=== PATIENT | male | born 1950 | race Two or more races ===

== ENCOUNTER 2016-12-20 23:07 | Inpatient (IN) | payer MEDICARE, OTHER ==
[~2016-12-20] VITALS: Ht 167.6 cm; Wt 54.4 kg
[~2016-12-20 23:07] MED LIST: LORazepam Inj 2mg/ml 1ml IV ONE
[2016-12-20 23:10] VITALS: BP 199/99
--- NOTE | 2016-12-20 23:36 | Emergency Room Report ---
History of Present Illness General Chief Complaint: Altered Level of Consciousness Source: Medical Record Present Illness HPI 66YOM BIBEMS from SNF for "more tremors than usual" and 'looking to the left" and not talking as much No other info from EMS, SNF Daughter called, patient is FULL CODE Allergies: Coded Allergies: ATORVASTATIN (Verified Allergy, Unknown, 12/20/16) Patient History Past Medical History: HTN, CVA/TIA, other - Tremors, anemia, dementia Past Surgical History: unable to obtain Pertinent Family History: unable to obtain Social History: Denies: smoking, alcohol use, drug use Immunizations: UTD Reviewed Nursing Documentation: PMH: Agreed, PSxH: Agreed Nursing Documentation-PMH Hx Hypertension: Yes Review of Systems All Other Systems: limited - AMS Physical Exam Vital Signs Date Time Temp Pulse Resp B/P (MAP) Pulse Ox O2 Delivery O2 Flow Rate FiO2 12/20/16 22:43 100.4 120 24 158/92 96 Non-Rebreather 15.0 Sp02 EP Interpretation: reviewed, normal General Appearance: normal inspection, other - Staring to left, severely tremulous Head: normocephalic, atraumatic Eyes: bilateral eye PERRL, bilateral eye EOMI ENT: normal ENT inspection, hearing grossly normal, normal pharynx, no angioedema Neck: normal inspection, full range of motion, supple, no bony tend Respiratory: normal inspection, lungs clear, normal breath sounds, no respiratory distress, no retraction, no accessory muscle use, no wheezing, speaking full sentences Cardiovascular #1: regular rate, rhythm, no edema, tachycardia Gastrointestinal: normal inspection, normal bowel sounds, non tender, soft, no guarding, no hernia Genitourinary: no CVA tenderness Musculoskeletal: normal inspection, back normal, normal range of motion, Lina' s Sign negative Neurologic: normal inspection, alert, other - Squeezes with right hand on command. Left hand contracted. Psychiatric: normal inspection, judgement/insight normal, mood/affect normal Skin: normal inspection, normal color, no rash Medical Decision Making Medicare Attestation I Lucero Rae MD hereby attest that the medical record entry for date of service, 12/21/16 accurately reflects signatures/notations that I made in my capacity as MD when I treated/diagnosed the above listed Medicare beneficiary. I attest that this information is true, accurate and complete to the best of my knowledge. I understand that any falsification, omission, or concealment of material fact may subject me to administrative, civil, or criminal liability. This patient warrants hospital admission for extreme of age and has a condition that cannot be treated as outpatient. Diagnostic Impression: Primary Impression: Altered level of consciousness Additional Impressions: Coarse tremors Sepsis Qualified Codes: A41.9 - Sepsis, unspecified organism ER Course Tremors resolved with IVF, ABx, Tylenol and IV ativan Hemodyanmics also improved. Tachycardia and HTN improved Labs: Leuks 18K. Lactate downtrended. CXR/UA negative for obvious source of infection Attempted LP 4x without CSF obtained Empirically tx for meningitis with Vanc/Amp/Ceftriaxone CT head no acute process Airway patent Patient able to follow commands - squeezes with right hand. Blinks twice for understanding commands. Endorsed to Dr Kelley for panel admission after [facility] approved admission here at 308am EKG Diagnostic Results Rate: tachycardiac Rhythm: NSR ST Segments: no acute changes ASA given to the pt in ED: No Rhythm Strip Diag. Results EP Interpretation: yes Rate: 105 Rhythm: NSR, no PVC's, no ectopy Chest X-Ray Diagnostic Results Chest X-Ray Diagnostic Results : Chest X-Ray Ordered: Yes # of Views/Limited/Complete: 1 View Indication: Other - AMS EP Interpretation: Yes Interpretation: no consolidation, no effusion, no pneumothorax, no acute cardiopulmonary disease Impression: No acute disease Interpreting ER Provider: Dr Lucero Rae MD Last Vital Signs Date Time Temp Pulse Resp B/P (MAP) Pulse Ox O2 Delivery O2 Flow Rate FiO2 12/20/16 22:43 100.4 120 24 158/92 96 Non-Rebreather 15.0 Status: improved Disposition: ADMITTED INPATIENT Condition: Critical LUCERO RAE M.D. Dec 20, 2016 23:36
[2016-12-20] MEDS ORDERED: Cefepime HCl 2 GM in D5W 110 ML IVPB ONE (23:45)
[2016-12-20] MEDS ORDERED: Acetaminophen 650 MG SUPP RECTAL ONE (23:45)
[2016-12-20 23:47] LABS: MEAN CORPUSCULAR HEMOGLOBIN 28.8 PG (27.0-31.0); MEAN CORPUSCULAR HGB CONC 32.9 G/DL (32.0-36.0); MEAN CORPUSCULAR VOLUME 87 FL (80-99); MEAN PLATELET VOLUME 5.4 FL (6.5-10.1); PLATELET COUNT 543 K/UL (150-450); RED BLOOD COUNT 3.81 M/UL (4.70-6.10); RED CELL DISTRIBUTION WIDTH 15.7 % (11.6-14.8); WHITE BLOOD COUNT 18.5 K/UL (4.8-10.8)
[2016-12-21] VITALS (9 sets, daily range): BP systolic 134–171; BP diastolic 80–118
[2016-12-21 00:09] LABS: TROPONIN I < 0.30 ng/mL (<=0.30)
[2016-12-21 00:13] LABS: ALANINE AMINOTRANSFERASE 19 U/L (3-41); ALBUMIN/GLOBULIN RATIO 1.2 (1.0-2.7); ANION GAP 13 (5-15); ASPARTATE AMINO TRANSFERASE 22 U/L (5-40); CALCIUM 9.5 mg/dL (8.6-10.2); CARBON DIOXIDE 26 mEQ/L (20-30); CHLORIDE 103 mEQ/L (98-107); GLOMERULAR FILTRATION RATE > 60 mL/min (>60); HEMOLYSIS 3; POTASSIUM 4.6 mEQ/L (3.4-4.9); SODIUM 142 mEQ/L (135-145)
[2016-12-21 00:16] LABS: REFLEX LACTIC ACID YES OR NO YES
[2016-12-21 00:23] LABS: CKMB 2.7 ng/mL (< 6.7)
[2016-12-21] MEDS ORDERED: Cefepime 2gm ONE (00:30)
[2016-12-21] MEDS ORDERED: levETIRAcetam 1,000mg/NS100ml 100 ML IVPB ONE (01:15)
[2016-12-21] MEDS ORDERED: Unasyn 3gm Inj IV ONE (01:30)
[2016-12-21] MEDS ORDERED: Vancomycin 1 GM in D5W 275 ML IVPB ONE (01:30)
[2016-12-21 01:51] LABS: APPEARANCE,URINE CLEAR; KETONES,URINE NEGATIVE (NEGATIVE); LEUKOCYTE ESTERASE ,URINE 2+ (NEGATIVE); NITRITE,URINE NEGATIVE (NEGATIVE); PH,URINE 6 (4.5-8.0); PROTEIN,URINE NEGATIVE (NEGATIVE); UROBILINOGEN,URINE NORMAL MG/DL (0.0-1.0)
[2016-12-21 02:00] LABS: RBC,URINE 0-2 /HPF (0 - 0)
[2016-12-21] MEDS ORDERED: fentaNYL 100 mcg/2 mL IV ONE (02:30)
[2016-12-21] MEDS ORDERED: Midazolam 2mg/2ml Inj IVP ONE (02:30)
[2016-12-21] MEDS ORDERED: Vancomycin 1gm inj IVPB ONE (03:22)
[2016-12-21] MEDS ORDERED: ACETAMINOPHEN325 M1 ORAL (03:52)
[2016-12-21] MEDS ORDERED: QUETIAPINE FUM100 MG ORAL (03:52)
[2016-12-21] MEDS ORDERED: FERROUS SULFAT325 MG ORAL (03:52)
[2016-12-21] MEDS ORDERED: NORVASC5 MG ORAL (03:52)
[2016-12-21] MEDS ORDERED: ATIVAN0.5 MG ORAL (03:52)
[2016-12-21] MEDS ORDERED: OMEPRAZOLE20 M3 ORAL (03:52)
[2016-12-21] MEDS ORDERED: D5 1/2NS 1,000 ML IV SCH (07:00)
--- NOTE | 2016-12-21 08:40 | History & Physical ---
History and Physical History & Physicial seen and examined. Dictation completed Gerard Kelley MD Dec 21, 2016 08:40
--- NOTE | 2016-12-21 08:43 | General Progress Note ---
Assessment/Plan Status: stable Assessment/Plan 1- Sepsis 2- Meningo-encephalitis: Presumable diagnosis 3- CVA- history of Plan: neuro ID Psych consulted. Start isolation, secondary to possibility of item#2 Subjective ROS Limited/Unobtainable: Yes Allergies: Coded Allergies: ATORVASTATIN (Verified Allergy, Unknown, 12/20/16) Objective Last 24 Hour Vital Signs Date Time Temp Pulse Resp B/P (MAP) Pulse Ox O2 Delivery O2 Flow Rate FiO2 12/21/16 05:15 98.6 120 21 140/86 98 Nasal Cannula 2.0 12/21/16 04:30 120 12/21/16 04:15 100.7 110 21 168/99 100 Nasal Cannula 2.0 12/21/16 04:00 110 21 168/99 100 Nasal Cannula 2.0 12/21/16 03:40 100.7 112 25 165/98 100 Nasal Cannula 2.0 12/21/16 02:57 100.7 12/21/16 02:12 131 28 169/118 93 Nasal Cannula 2.0 12/21/16 01:00 120 23 154/80 100 Nasal Cannula 2.0 12/21/16 00:21 99.9 12/20/16 23:51 199/99 12/20/16 23:10 100.4 124 23 199/99 97 Room Air 12/20/16 22:43 100.4 120 24 158/92 96 Non-Rebreather 15.0 Laboratory Tests 12/20/16 23:15: White Blood Count 18.5H, Red Blood Count 3.81L, Hemoglobin 11.0L, Hematocrit 33.3L, Mean Corpuscular Volume 87, Mean Corpuscular Hemoglobin 28.8, Mean Corpuscular Hemoglobin Concent 32.9, Red Cell Distribution Width 15.7H, Platelet Count 543H, Mean Platelet Volume 5.4L, Neutrophils (%) (Auto) , Lymphocytes (%) (Auto) , Monocytes (%) (Auto) , Eosinophils (%) (Auto) , Basophils (%) (Auto) , Sodium Level 142, Potassium Level 4.6, Chloride Level 103 , Carbon Dioxide Level 26, Anion Gap 13, Blood Urea Nitrogen 13, Creatinine 1.0 , Estimat Glomerular Filtration Rate > 60, Glucose Level 142H, Lactic Acid Level 3.20H, Calcium Level 9.5, Total Bilirubin 0.2, Aspartate Amino Transf (AST /SGOT) 22, Alanine Aminotransferase (ALT/SGPT) 19, Alkaline Phosphatase 109, Total Creatine Kinase 109, Creatine Kinase MB 2.7, Creatine Kinase MB Relative Index 2.4, Troponin I < 0.30, Total Protein 8.0, Albumin 4.5, Globulin 3.5, Albumin/Globulin Ratio 1.2 12/21/16 01:40: Lactic Acid Level 2.10, Urine Color Pale yellow, Urine Appearance Clear, Urine pH 6, Urine Specific [place] 1.010, Urine Protein Negative, Urine Glucose (UA) Negative, Urine Ketones Negative, Urine Occult Blood Negative, Urine Nitrite Negative, Urine Bilirubin Negative, Urine Urobilinogen Normal, Urine Leukocyte Esterase 2+H, Urine RBC 0-2H, Urine WBC 10-15H, Urine Squamous Epithelial Cells None, Urine Bacteria None Height (Feet): 5 Height (Inches): 6.00 Weight (Pounds): 120 General Appearance: lethargic, confused EENT: other - Nucheal rigidity Neck: muscle spasm Cardiovascular: normal rate Respiratory/Chest: lungs clear Abdomen: soft Extremities: other - [place] positive Neurologic: disoriented Gerard Kelley MD Dec 21, 2016 08:43
[2016-12-21] MEDS: Heparin 5000 units/ml inj SUBQ SCH ×2 (09:58→21:46)
[2016-12-21] MEDS ORDERED: Cefepime HCl 1 GM in D5W 55 ML IVPB SCH (11:00)
--- NOTE | 2016-12-21 12:42 | Consultation ---
History of Present Illness General Date patient seen: Dec 21, 2016 Chief Complaint: Altered Level of Consciousness Referring physician: Dr kowalski Reason for Consultation: dyspnea, sepsis Present Illness HPI 66 year old male with hx of HTN, COPD, CVA, from SNF brought in by paramedics with CC of for "more tremors than usual" and 'looking to the left" and not talking as much. Pt was febrile and poorly responsive and admitted to [facility] for further evaluation. Allergies: Coded Allergies: ATORVASTATIN (Verified Allergy, Unknown, 12/20/16) Medication History Scheduled Amlodipine Besylate (Norvasc), 5 MG ORAL DAILY, (Reported) Ferrous Sulfate* (Ferrous Sulfate*), 325 MG ORAL DAILY, (Reported) Omeprazole (Omeprazole), 20 MG ORAL BID, (Reported) Quetiapine Fumarate* (Seroquel*), 50 MG ORAL DAILY, (Reported) Scheduled PRN Acetaminophen* (Acetaminophen 325MG Tablet*), 325 MG ORAL Q6H PRN for Mild Pain (Pain Scale 1-3), (Reported) Lorazepam* (Ativan*), 0.5 MG ORAL BID PRN for For Anxiety, (Reported) Patient History Healthcare decision maker Resuscitation status Full Code Advanced Directive on File No Past Medical/Surgical History Past Medical/Surgical History: (1) History of CVA (cerebrovascular accident) (2) COPD (chronic obstructive pulmonary disease) Review of Systems Eye: Reports: no symptoms ENT: Reports: no symptoms Respiratory: Reports: no symptoms Physical Exam General Appearance: WD/WN Lines, tubes and drains: peripheral HEENT: normocephalic, atraumatic Neck: non-tender, normal alignment Respiratory/Chest: chest wall non-tender, lungs clear Breasts: no masses Cardiovascular/Chest: normal peripheral pulses Abdomen: normal bowel sounds, non tender Genitourinary/Rectal: normal genital exam Extremities: normal range of motion Skin Exam: normal pigmentation Neurologic: retail marketing manager II-XII grossly normal, no motor/sensory deficits Last 24 Hour Vital Signs Date Time Temp Pulse Resp B/P (MAP) Pulse Ox O2 Delivery O2 Flow Rate FiO2 12/21/16 12:00 97.2 96 20 161/90 98 Nasal Cannula 2.0 12/21/16 09:52 105 134/93 12/21/16 08:00 98.2 105 16 134/93 96 Nasal Cannula 2.0 12/21/16 08:00 2.0 12/21/16 05:15 98.6 120 21 140/86 98 Nasal Cannula 2.0 12/21/16 04:30 120 12/21/16 04:15 100.7 110 21 168/99 100 Nasal Cannula 2.0 12/21/16 04:00 110 21 168/99 100 Nasal Cannula 2.0 12/21/16 03:40 100.7 112 25 165/98 100 Nasal Cannula 2.0 12/21/16 02:57 100.7 12/21/16 02:12 131 28 169/118 93 Nasal Cannula 2.0 12/21/16 01:00 120 23 154/80 100 Nasal Cannula 2.0 12/21/16 00:21 99.9 12/20/16 23:51 199/99 12/20/16 23:10 100.4 124 23 199/99 97 Room Air 12/20/16 22:43 100.4 120 24 158/92 96 Non-Rebreather 15.0 Intake and Output 12/21/16 12/22/16 19:00 07:00 Output Total 550 ml Balance -550 ml Output Urine Total 550 ml Laboratory Tests Test 12/20/16 23:15 12/21/16 01:40 White Blood Count 18.5 K/UL (4.8-10.8) H Red Blood Count 3.81 M/UL (4.70-6.10) L Hemoglobin 11.0 G/DL (14.2-18.0) L Hematocrit 33.3 % (42.0-52.0) L Mean Corpuscular Volume 87 FL (80-99) Mean Corpuscular Hemoglobin 28.8 PG (27.0-31.0) Mean Corpuscular Hemoglobin Concent 32.9 G/DL (32.0-36.0) Red Cell Distribution Width 15.7 % (11.6-14.8) H Platelet Count 543 K/UL (150-450) H Mean Platelet Volume 5.4 FL (6.5-10.1) L Neutrophils (%) (Auto) % (45.0-75.0) Lymphocytes (%) (Auto) % (20.0-45.0) Monocytes (%) (Auto) % (1.0-10.0) Eosinophils (%) (Auto) % (0.0-3.0) Basophils (%) (Auto) % (0.0-2.0) Sodium Level 142 mEQ/L (135-145) Potassium Level 4.6 mEQ/L (3.4-4.9) Chloride Level 103 mEQ/L (98-107) Carbon Dioxide Level 26 mEQ/L (20-30) Anion Gap 13 (5-15) Blood Urea Nitrogen 13 mg/dL (7-23) Creatinine 1.0 mg/dL (0.7-1.2) Estimat Glomerular Filtration Rate > 60 mL/min (>60) Glucose Level 142 mg/dL (74-106) H Lactic Acid Level 3.20 mmol/L (0.66-2.22) H 2.10 mmol/L (0.66-2.22) Calcium Level 9.5 mg/dL (8.6-10.2) Total Bilirubin 0.2 mg/dL (0.0-1.2) Aspartate Amino Transf (AST/SGOT) 22 U/L (5-40) Alanine Aminotransferase (ALT/SGPT) 19 U/L (3-41) Alkaline Phosphatase 109 U/L (40-129) Total Creatine Kinase 109 U/L (38-174) Creatine Kinase MB 2.7 ng/mL (< 6.7) Creatine Kinase MB Relative Index 2.4 Troponin I < 0.30 ng/mL (<=0.30) Total Protein 8.0 g/dL (6.6-8.7) Albumin 4.5 g/dL (3.5-5.2) Globulin 3.5 g/dL Albumin/Globulin Ratio 1.2 (1.0-2.7) Urine Color Pale yellow Urine Appearance Clear Urine pH 6 (4.5-8.0) Urine Specific [place] 1.010 (1.005-1.035) Urine Protein Negative (NEGATIVE) Urine Glucose (UA) Negative (NEGATIVE) Urine Ketones Negative (NEGATIVE) Urine Occult Blood Negative (NEGATIVE) Urine Nitrite Negative (NEGATIVE) Urine Bilirubin Negative (NEGATIVE) Urine Urobilinogen Normal MG/DL (0.0-1.0) Urine Leukocyte Esterase 2+ (NEGATIVE) H Urine RBC 0-2 /HPF (0 - 0) H Urine WBC 10-15 /HPF (0 - 0) H Urine Squamous Epithelial Cells None /LPF (NONE/OCC) Urine Bacteria None /HPF (NONE) Height (Feet): 5 Height (Inches): 6.00 Weight (Pounds): 120 Medications Current Medications Medications (Trade) Dose Ordered Sig/Treasure Route PRN Reason Start Time Stop Time Status Last Admin Dose Admin Acetaminophen (Tylenol) 650 mg Q6H PRN ORAL Mild Pain/Temp > 100.5 12/21/16 06:45 01/20/17 06:44 Amlodipine Besylate (Norvasc) 5 mg DAILY ORAL 12/21/16 09:00 01/20/17 08:59 12/21/16 09:52 Cefepime HCl 1 gm/ Dextrose 55 ml @ 110 mls/hr Q12HR@1100,2300 IVPB 12/21/16 11:00 12/28/16 10:59 12/21/16 10:29 Dextrose/Sodium Chloride 1,000 ml @ 150 mls/hr Q6H40M IV 12/21/16 07:00 01/20/17 06:59 12/21/16 07:00 Ferrous Sulfate (Feosol) 325 mg DAILY ORAL 12/21/16 09:00 01/20/17 08:59 12/21/16 09:52 Heparin Sodium (Porcine) (Heparin 5000 units/ml) 5,000 units EVERY 12 HOURS SUBQ 12/21/16 09:00 01/20/17 08:59 12/21/16 09:58 Ranitidine HCl (Zantac) 150 mg TWICE A DAY ORAL 12/21/16 09:00 01/20/17 08:59 12/21/16 09:52 Vancomycin HCl (Vanco rx to dose) 1 ea DAILY PRN MISC Per rx protocol 12/21/16 06:45 01/20/17 06:44 Vancomycin HCl 1 gm/Dextrose 275 ml @ 183.708 mls/hr Q24H IVPB 12/22/16 03:00 12/27/16 02:59 Assessment/Plan Problem List: (1) Sepsis ICD Codes: A41.9 - Sepsis, unspecified organism SNOMED: 92623299 Qualifiers: Qualified Codes: A41.9 - Sepsis, unspecified organism (2) Altered level of consciousness ICD Codes: R40.4 - Transient alteration of awareness SNOMED: 0248019 (3) COPD (chronic obstructive pulmonary disease) ICD Codes: J44.9 - Chronic obstructive pulmonary disease, unspecified SNOMED: 88265888 (4) History of CVA (cerebrovascular accident) ICD Codes: Z86.73 - Personal history of transient ischemic attack (TIA), and cerebral infarction without residual deficits SNOMED: 449028727 Assessment/Plan kimbrough cultures iv abx check wbc swallow studies dvt prophylaxis NG tube feeding ID evaluation Neuro to see. GUS CUMMINGS Dec 21, 2016 12:42
[2016-12-21] MEDS: D5 1/2NS 1,000 ML IV SCH (15:02)
[2016-12-21] MEDS ORDERED: Tubing IV Secondary IV ONE (15:46)
[2016-12-21] MEDS ORDERED: D5 1/2NS 1000ml IV ONE (15:46)
[2016-12-21] MEDS: Vancomycin 1gm/D5W 275ml IVPB SCH ×2 (18:54)
[2016-12-21] MEDS ORDERED: Acetaminophen 650mg/20.3ml GT PRN (20:00)
--- NOTE | 2016-12-21 20:49 | Consultation ---
Consult Note Consult Note NEUROLOGY CONSULTATION: Full note dictated #[id number] 66 y/o, RH, BM with PH of HTN, multiple strokes involving the left body > right, a significant aphasia, and dementia. He was recently moved to a SNF where he was noted to have an "alteration in mental state and tremors." ON EXAMINATION: Oriented to self only. Aphasic Dysarthric Depressed left corneal Left > right VII central Left upper extremity plegia Right UE paresis L>R LE paresis Absent DTRs Extensor plantars. CT of brain with multi-infarct brain disease involving both hemispheres. IMPRESSION: MIBD Superadded infectious process. REC: Agree with brain MRI EEG Rx of infection Observe. Becca Mckeon M.D., M.S.P.Prema. BECCA MCKEON Dec 21, 2016 20:49
--- NOTE | 2016-12-21 21:30 | History and Physical Report ---
DATE OF ADMISSION: 12/21/2016 SOURCE OF INFORMATION: EMR. HISTORY OF PRESENT ILLNESS: The patient is a resident of a fdc facility. The patient has been brought up regarding the tremors and some seizure-like activities. Per conversation with the patient's daughter, the patient is Full Code. PAST MEDICAL HISTORY: Hypertension, CVA, tremors, anemia, and dementia. PAST SURGICAL HISTORY: Unable to obtain. ALLERGIES: Atorvastatin. HOSPITAL MEDICATIONS: Including but not limited to vancomycin, heparin subcutaneous 5000 twice a day, cefepime 1 g q.12 hours, amlodipine 5 mg daily, and GI and DVT prophylaxes medications in place. SOCIAL HISTORY: No documented history of illicit drug abuse, smoking, or alcohol abuse exists. The patient is a resident of a fdc facility. REVIEW OF SYSTEMS: As above. PHYSICAL EXAMINATION: VITAL SIGNS: Blood pressure 170/80, temperature 100.7, pulse rate 100-120, and respiratory rate 20-25. HEENT AND NECK: Head and neck is very rigid. CHEST: Clear to auscultation. No wheezing. HEART: S1 and S2. Regular rate and rhythm. Tachycardic. NEUROLOGIC: The patient is obtunded, not verbally communicative. Hyperreflexia, possibility of Kernig's and Brudzinski's. Reflexes cannot be excluded. There is a nuchal rigidity. LABORATORY AND DIAGNOSTIC DATA: Labs dated 12/20/2016 showed WBC 18.5, hemoglobin 11, and platelets 543,000. Sodium 142, potassium 4.6, BUN 13, and creatinine 1. Lactic acid 3.2. Urinalysis is unremarkable. Imaging reports are pending. ASSESSMENT: 1. Sepsis, sources including, but not limited to meningitis. 2. Meningoencephalitis-the presumable diagnosis-lumbar puncture cannot be obtained secondary to patient's posture. 3. Cerebrovascular accident-history of 4. Anemia. 5. Anxiety/depression. 6. Gastrointestinal and deep vein thrombosis prophylaxis. PLAN OF CARE: This is a significantly limited medical evaluation. Given the technical problems for obtaining the LP towards the clinical suspicions of meningoencephalitis. I will start the patient on the isolation. Neurology, Infectious Diseases are already been consulted and notified. Empiric antibiotics cefepime and vancomycin have been already started. Gerard Kelley M.D. DR: RADHA JOB#: [id number] CC:
[2016-12-21] MEDS: Metoprolol 25mg tab NG SCH (21:32)
[2016-12-21] MEDS: Acyclovir 750 MG in NS 110 ML IV SCH (21:32)
[2016-12-21] MEDS: cefTRIAXone 2 GM in D5W 110 ML IVPB SCH (21:32)
[2016-12-21 22:10] LABS: HEMOGLOBIN A1C 5.1 % (< 6.0)
--- NOTE | 2016-12-21 23:34 | Consultation ---
History of Present Illness General Chief Complaint: Altered Level of Consciousness Present Illness HPI the pt with multiple strokes mmp admitted for ams. mom bedside her and the pt was alert however not responding to questions. the pt pw episodes of agitation. the pt sxs manageable the pt is in one point restraint. the pt has cognitive impairment. Allergies: Coded Allergies: ATORVASTATIN (Verified Allergy, Unknown, 12/20/16) Medication History Scheduled Amlodipine Besylate (Norvasc), 5 MG ORAL DAILY, (Reported) Ferrous Sulfate* (Ferrous Sulfate*), 325 MG ORAL DAILY, (Reported) Omeprazole (Omeprazole), 20 MG ORAL BID, (Reported) Quetiapine Fumarate* (Seroquel*), 50 MG ORAL DAILY, (Reported) Scheduled PRN Acetaminophen* (Acetaminophen 325MG Tablet*), 325 MG ORAL Q6H PRN for Mild Pain (Pain Scale 1-3), (Reported) Lorazepam* (Ativan*), 0.5 MG ORAL BID PRN for For Anxiety, (Reported) Patient History History Provided By: Patient, Medical Record, PMD Healthcare decision maker Resuscitation status Full Code Advanced Directive on File No Past Medical/Surgical History Past Medical/Surgical History: (1) Sepsis (2) Altered level of consciousness (3) Coarse tremors Review of Systems All Other Systems: negative except mentioned in HPI Physical Exam General Appearance: no apparent distress, alert, confused, cachetic Neurologic: alert, disoriented, unresponsiveness, depressed affect Last 24 Hour Vital Signs Date Time Temp Pulse Resp B/P (MAP) Pulse Ox O2 Delivery O2 Flow Rate FiO2 12/21/16 21:32 93 163/100 12/21/16 20:00 93 12/21/16 20:00 2.0 12/21/16 20:00 97.7 93 18 163/100 95 Nasal Cannula 2.0 12/21/16 16:10 2.0 12/21/16 16:00 96 12/21/16 16:00 97.0 100 21 171/90 93 Nasal Cannula 2.0 12/21/16 12:00 2.0 12/21/16 12:00 97.2 96 20 161/90 98 Nasal Cannula 2.0 12/21/16 09:52 105 134/93 12/21/16 09:02 110 12/21/16 08:00 98.2 105 16 134/93 96 Nasal Cannula 2.0 12/21/16 08:00 2.0 12/21/16 05:15 98.6 120 21 140/86 98 Nasal Cannula 2.0 12/21/16 04:30 120 12/21/16 04:15 100.7 110 21 168/99 100 Nasal Cannula 2.0 12/21/16 04:00 110 21 168/99 100 Nasal Cannula 2.0 12/21/16 03:40 100.7 112 25 165/98 100 Nasal Cannula 2.0 12/21/16 02:57 100.7 12/21/16 02:12 131 28 169/118 93 Nasal Cannula 2.0 12/21/16 01:00 120 23 154/80 100 Nasal Cannula 2.0 12/21/16 00:21 99.9 12/20/16 23:51 199/99 Intake and Output 12/21/16 12/22/16 19:00 07:00 Output Total 1600 ml 400 ml Balance -1600 ml -400 ml Output Urine Total 1600 ml 400 ml Laboratory Tests Test 12/21/16 01:40 12/21/16 02:50 12/21/16 21:10 Urine Color Pale yellow Urine Appearance Clear Urine pH 6 (4.5-8.0) Urine Specific [place] 1.010 (1.005-1.035) Urine Protein Negative (NEGATIVE) Urine Glucose (UA) Negative (NEGATIVE) Urine Ketones Negative (NEGATIVE) Urine Occult Blood Negative (NEGATIVE) Urine Nitrite Negative (NEGATIVE) Urine Bilirubin Negative (NEGATIVE) Urine Urobilinogen Normal MG/DL (0.0-1.0) Urine Leukocyte Esterase 2+ (NEGATIVE) H Urine RBC 0-2 /HPF (0 - 0) H Urine WBC 10-15 /HPF (0 - 0) H Urine Squamous Epithelial Cells None /LPF (NONE/OCC) Urine Bacteria None /HPF (NONE) Lactic Acid Level 2.10 mmol/L (0.66-2.22) Thyroid Stimulating Hormone (TSH) 1.940 uIU/mL (0.300-4.500) Rapid Plasma Reagin Pending HIV (1&2) Antibody Rapid Negative (NEGATIVE) Hemoglobin A1c 5.1 % (< 6.0) Vitamin B12 Level 255 pg/mL (211-946) Vitamin D 25-Hydroxy Pending 25-Hydroxy Vitamin D2 Pending 25-Hydroxy Vitamin D3 Pending Folate Pending Height (Feet): 5 Height (Inches): 6.00 Weight (Pounds): 120 Medications Current Medications Medications (Trade) Dose Ordered Sig/Treasure Route PRN Reason Start Time Stop Time Status Last Admin Dose Admin Acetaminophen (Tylenol) 650 mg Q6H PRN GT Mild Pain/Temp > 100.5 12/21/16 20:00 01/20/17 06:44 Acyclovir 750 mg/ Sodium Chloride 110 ml @ 110 mls/hr Q8HR IV 12/21/16 19:30 12/28/16 19:29 12/21/16 21:32 Amlodipine Besylate (Norvasc) 5 mg DAILY GT 12/22/16 09:00 01/20/17 08:59 Ceftriaxone Sodium 2 gm/ Dextrose 110 ml @ 220 mls/hr Q12HR@0800,2000 IVPB 12/21/16 20:00 12/28/16 19:59 12/21/16 21:32 Dextrose/Sodium Chloride 1,000 ml @ 75 mls/hr [id number] IV 12/21/16 13:00 01/20/17 12:59 12/21/16 15:02 Heparin Sodium (Porcine) (Heparin 5000 units/ml) 5,000 units EVERY 12 HOURS SUBQ 12/21/16 09:00 01/20/17 08:59 12/21/16 21:46 Metoprolol Tartrate (Lopressor) 25 mg Q12HR NG 12/21/16 18:00 01/20/17 17:59 12/21/16 21:32 Ranitidine HCl (Zantac) 150 mg TWICE A DAY GT 12/22/16 09:00 01/20/17 08:59 Vancomycin HCl (Vanco rx to dose) 1 ea DAILY PRN MISC Per rx protocol 12/21/16 06:45 01/20/17 06:44 Vancomycin HCl 1 gm/Dextrose 275 ml @ 183.708 mls/hr Q12HR@0600,1800 IVPB 12/21/16 18:30 12/26/16 18:29 12/21/16 18:54 Assessment/Plan Status: unchanged Assessment/Plan encephalopathy due [facility] agitation stroke -will not add any antipsychotics -will treat agitation with Cinthia Donis M.D. Dec 21, 2016 23:34
[2016-12-22] VITALS: BP 155/86
[2016-12-22] MEDS: D5 1/2NS 1,000 ML IV SCH ×2 (02:14→20:01)
[2016-12-22] MEDS ORDERED: Vancomycin 1gm/D5W 275ml IVPB SCH ×2 (03:00)
--- NOTE | 2016-12-22 03:46 | Consultation ---
DATE OF CONSULTATION: 12/21/2016 NEUROLOGY CONSULTATION CONSULTING PHYSICIAN: Frantz Mckeon M.D. REQUESTING PHYSICIAN: Gerard Kelley M.D. HISTORY: Mr. Barry Sims is a 66-year-old, right-handed, black gentleman, who does have a past history of hypertension, multiple strokes involving the left body more than the right, significant aphasia, and progressive dementia. He was recently moved from his home to a half-way facility. He was functioning well there for few days, but then he was noted to have an alteration in his mental state and was having some unusual tremulous movements. As a result of that he was brought into the [facility] emergency room. On being evaluated in the emergency room, it was felt that he was septic. There was also a question as to whether he had a meningitic process. A lumbar puncture was attempted a few times, but failed. A CT scan of the brain was done, which revealed bilateral cerebrovascular disease of a chronic nature, but no acute pathology was seen. Since then, the patient has been started on intravenous fluids and antibiotics and seems to be a little better at this point in time. He, however, is unable to give me any history. As per his daughter, who was visiting him, he is able to say a few words, but is unable to express himself in a normal fashion. He also has been unable to walk for the last two years. In addition, the left side has always been weaker than the right side. PAST MEDICAL HISTORY: Significant for high blood pressure, multiple strokes, and dementia. FAMILY HISTORY: Significant for high blood pressure in other family members. PERSONAL HISTORY: Home: He lives in a half-way facility. 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 Habits: He used to smoke and drink in the past, but stopped doing both quite a few years ago. There is no history of any illicit drugs in the near past. PRESENT MEDICATIONS: Include ranitidine, amlodipine, ceftriaxone, acetaminophen, acyclovir, vancomycin, metoprolol, and heparin for DVT prophylaxis. He also got a single dose of Keppra and Ativan in the emergency room. PHYSICAL EXAMINATION: GENERAL: He is a well-developed, well-nourished, but lean black gentleman, lying in bed, with the right gaze preference and a contracture of his left upper and lower extremities. HEAD: Normocephalic and atraumatic. EENT: Examination benign. NECK: No neck rigidity was observed. He did, however, have decreased range of motion in all directions. NEUROLOGIC EXAMINATION: MENTAL STATUS EXAMINATION: He was awake, but not alert. He was oriented to self only. He had no idea of where he was or what the date was. He was able to say a few words, but could not have a conversation. He seemed to have problems with expressing himself more than understanding language. SPEECH: He had a moderate dysarthria. LANGUAGE: He had an expressive greater than receptive aphasia. CRANIAL NERVE EXAMINATION: II: He had a right gaze preference. He did blink to threat on both sides. However, it was difficult to determine if his visual daly were intact or not. III, IV & : The external ocular movements were present on oculocephalic maneuvers. The pupils were 3 mm in diameter, equal, round, regular, and reactive to light. V & VII: The corneal reflex was significantly diminished on the left side compared to the right. He also had a left greater than right VII central facial paresis. VIII: He was able to hear and had no nystagmus. IX: The palate moved symmetrically on phonation. X: He had no hoarseness of voice. XI: The sternocleidomastoids and trapezii functioned normally. XII: The tongue was in the midline without any fasciculations or atrophy. MOTOR SYSTEM: The tone was increased in all four extremities with spasticity more marked on the left than on the right. Examination of muscle mass revealed contractures of the left hand and the left lower extremity. Examination of power was impossible to perform on individual muscle groups, however, the left upper extremity was plegic, the right upper extremity was paretic, and he had a left greater than right lower extremity paresis. SENSORY EXAMINATION: He responded to deep pain, but the response was more robust on right-sided stimulation than left-sided stimulation. REFLEXES: 0 at the biceps, triceps, brachioradialis, knees, and ankles. The plantar responses were extensor bilaterally. COORDINATION: Could not be tested. STANCE: Could not be tested. GAIT: Could not be tested. DIAGNOSTIC IMPRESSION: 1. Mr. Barry Sims is a 66-year-old, right-handed, black gentleman, with a past history of hypertension, multiple strokes involving the left body more than the right, aphasia, and dementia, who was recently moved to a half-way facility. He was noted to have an alteration in his mental state and some tremor-like movements there. As a result of that, he was brought in to the [facility] emergency room where he was diagnosed with sepsis. He was treated with antibiotics and fluids and seems to be better at this point in time as per his daughter. 2. On neurological examination, at this time, he is oriented to self only. He has significant problems with language with significant aphasia. He has dysarthria. He has global cognitive dysfunction, a depressed left corneal reflex, left greater than right VII central facial paresis, left upper extremity plegia, right upper extremity paresis, left greater than right lower extremity paresis, absent deep tendon reflexes, and extensor plantar responses bilaterally. 3. The CT scan of the brain without contrast reveals multiple old infarcts involving both hemispheres. 4. Laboratory data obtained thus far reveal a WBC count elevated to 18,500, an anemia with a hemoglobin of 11.0, glucose elevated to 142, and lactic acid elevated to 3.2. Normal TSH and normal electrolytes. His urinalysis reveals 2+ leukocyte esterase, 2 red blood cells, and 10 to 15 white blood cells per high-power field. His human-immunodeficiency virus 1 and 2 antibodies are negative. 5. 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 RECOMMENDATIONS: 1. Agree with management thus far. 2. Agree with obtaining an MRI scan of the brain to determine if the patient has had the new cerebrovascular event. 3. Aggressive treatment of the patient's infectious process. 4. An EEG will be ordered to evaluate the patient for the degree and type of cerebral dysfunction. 5. Other laboratory tests will be ordered to evaluate the patient for altered mental state. 6. Depending on how the patient fares over the next day or so, further recommendations will be given. Thank you for entrusting me with the care of Mr. Sims. I shall follow him with you. Frantz Mckeon M.D., M.S.P.H. DR: SAURABH JOB#: [id number] KYLEE
--- NOTE | 2016-12-22 03:46 | Consultation ---
DATE OF CONSULTATION: 12/21/2016 INFECTIOUS DISEASE CONSULTATION CONSULTING PHYSICIAN: Uriel Morillo M.D., covering for Michele Biggs M.D. ATTENDING PHYSICIAN: Gerard Kelley M.D. REASON FOR CONSULTATION: Fever and altered sensorium. HISTORY OF PRESENT ILLNESS: This is a 66-year-old male, who lives at a subacute nursing facility and was brought in for increase of his baseline tremors, decreased talking interaction, and abnormal visual gaze. He was brought in by EMS, initially found to have low-grade temperature up to 100.7 degrees Fahrenheit, and also found to have leukocytosis of 18.5. In the emergency room, they attempted lumbar puncture on several occasions, but was unsuccessful. In addition, LP capability currently not available at this facility. Additional workup in the emergency room included chemistry panel that was otherwise unremarkable for metabolic derangements with an overall bicarbonate of 26, but initial elevated serum lactate at 3.2 micromoles/liter that rapidly decreased two hours later with IV fluids to 2.1 within the normal range. He also had cardiac markers x1 that were negative and he was noted to have an absence of hypoalbuminemia. He also had urinalysis that showed 10 to 15 white blood cells. Blood cultures and urine cultures are currently pending. He had a chest x-ray that showed absence of infiltrate or effusion and on my read showed he had pretty prominent gastric bubble, otherwise no free air below the diaphragm. He also had CT noncontrast of the head that was negative for intracranial hemorrhage, mass, or edema. He does have some periventricular small white matter changes consistent with old microvascular ischemic changes and he has a little bit of opacification of the paranasal sinuses, but otherwise is unremarkable. He was given a dose of Unasyn earlier this morning and he was continued on vancomycin and cefepime empirically pending blood and urine cultures. It should be noted his pertinent past medical history includes hypertension, reported history of CVA and TIA, chronic essential tremors, anemia, and dementia of uncertain etiology but with tremors suspect parkinsonism. Discussed with his mother this evening who states he is ambulatory at baseline and is communicative and she considers him in the first stage or early stages of dementia at his baseline and he is not known or documented to have seizure disorder. He gets most of his medical care apparently in the [facility] system. PAST MEDICAL HISTORY: As above. Hypertension, CVA/TIA, essential tremors, anemia, and dementia of uncertain etiology. MEDICATIONS: His home medications include Tylenol as needed, Norvasc 5 mg oral daily, iron sulfate 325 mg oral daily, and he was also written for Ativan 0.5 mg oral twice daily as needed, Seroquel 100 mg daily, and then also he is on omeprazole 20 mg oral twice daily. ALLERGIES: Atorvastatin, reaction unknown. FAMILY HISTORY: Noncontributory. PERSONAL AND SOCIAL HISTORY: Lives at [facility]. Nonsmoker. No reported history of recent or prior alcohol use or abuse. No known history of illicit drug use. REVIEW OF SYSTEMS: Unable to be obtained directly from the patient on account of his altered mental status. PHYSICAL EXAMINATION: VITAL SIGNS: T-max of 100.7 degrees Fahrenheit taken orally, T-current 97.0 degrees Fahrenheit, blood pressure 171/90, pulse 100, respiratory rate 16, and he is saturating between 93% and 98% on 2 lL nasal cannula. GENERAL: Eyes are open, but not particularly responsive. He does withdraw to pain and is not in extremis. HEENT: He has no oral lesions. Oral mucosa is dry. Conjunctiva is pale and pink without conjunctival injection. Spontaneous extraocular muscles are intact, but he does have a kind of static rightward gaze at baseline and he is favoring his head looking in the rightward direction. His head is normocephalic, atraumatic without any skin lesions. NECK: Supple without any nuchal rigidity or meningismus. He has no carotid bruits. CARDIOVASCULAR: Borderline tachycardic. No murmur appreciated. No rubs or gallops. His PMI is not displaced laterally. LUNGS: Clear to auscultation bilaterally. ABDOMEN: No hepatosplenomegaly. No tenderness to palpation. No rebound or guarding. His abdomen is flat and soft. EXTREMITIES: Somewhat cachectic, thin, tall man. He has no lower extremity edema. He has thick dystrophic nails. Pulses are intact distally. He has no cyanosis or mottling. His extremities are warm to touch. He does have a few scattered superficial abrasions to his right santa but he has no petechiae, no purpura, and no ecchymoses of any kind. GENITOURINARY: He has no scrotal edema. No erythema. No focal mass or fluctuance appreciated. He is uncircumcised without any lesions or drainage from the penis. RECTAL: No perirectal lesions appreciated. He has normal rectal tone. NEUROLOGIC: He is quite contracted. He does withdraw to pain. He does have subtle cogwheel rigidity in his right greater than left upper extremity. His deep tendon reflexes are 2+, equal and symmetric throughout. He does move all four extremities spontaneously and he has no focal tenderness to palpation. LABORATORY DATA: His white blood cell count is 18.5 with differential not performed that was from last night, hemoglobin is 11, platelet count is 543,000 without prior baseline for comparison and an MCV at 87. Chemistry panel, sodium 142, potassium 4.6, chloride 103, bicarbonate 26, BUN 13, creatinine 1.0, normal anion gap, glucose 142. Initial serum lactate 3.2 at 2315 hours last night and now at 0140 hours this morning, it is 2.1, in the normal range. Calcium 9.5. Total bilirubin 0.2, AST and ALT are normal at 22 and 19 respectively, alkaline phosphatase is 109, total protein 8, albumin 4.5. Total creatine kinase of 109 and troponin I that was negative. Urinalysis, isosthenuria with negative nitrites, 2+ leukocyte esterase, 10 to 15 white blood cells, and no RBCs. Blood cultures, urine cultures, MRSA nares culture, and VRE screening culture are all pending. IMAGING: The chest x-ray was described above in the history of present illness. The CT noncontrast of head was described above in the history of present illness. ASSESSMENT: This is a 66-year-old male with history of multi-infarct dementia versus possible superimposed parkinsonism, admitted now for altered mental status and fevers consistent with diagnosis of sepsis. His physical examination is less concerning for meningitis and consistent with an encephalitis. He has no other localizing signs or symptoms of infection, no reason to suggest intra-abdominal process. He may have urinary tract infection, so this could be urosepsis and blood cultures are pending to help us rule out that he has an additional bacteremia as a potential alternative infectious cause of his altered mental status, but he is hemodynamically stable and mild elevation of serum lactate on presentation is now resolved. Unfortunately, lumbar puncture has not been performed and were still pending. An MRI of his brain to exclude leptomeningeal enhancement or evidence of inflammation enhancement of the temporal lobes. Of course, differential diagnosis of an infectious encephalitis, the number one cause of sporadic viral encephalitis would be herpes simplex virus, which is certainly likely here and is potentially treatable. Also to consider would be West Nile virus encephalitis, which is the number one cause of seasonal arboviral encephalitis, but given his exposure history, I think this is less likely and number three would be enterovirus which is the number one cause of seasonal, non-arboviral encephalitis and this would be potentially appropriate time and year for that. He is not known to be immunocompromised, so would not expect those and his chest x-ray does not suggest common pneumonia so I think mycoplasma encephalitis is incredibly unlikely, so at this time, we need to rule out for bacteremia, consider urosepsis and treat that appropriately pending the urine culture, but for now in lieu of lumbar puncture and pending MRI, we need to treat him empirically for a possible bacterial meningeal encephalitis and a probable viral encephalitis. Of course, most viral encephalitis are untreatable other than supportive care, but we will treat empirically for herpes simplex virus . 1. Encephalitis. 2. Rule out meningitis, less likely. 3. Rule out urosepsis. 4. Rule out bacteremia. 5. Leukocytosis. 6. Elevated serum lactate, that had since resolved. 7. Hemodynamically stable. 8. History of ischemic cerebrovascular accident and possible parkinsonism. RECOMMENDATIONS: 1. I have asked pharmacy to increase his vancomycin dosing to ensure getting appropriate meningitis dosing levels and nursing has been instructed to obtain an adequate weight because I am not sure that he is 55 kg is accurate. 2. Discontinue cefepime. 3. Start ceftriaxone 2 g IV q.12 h., which is the empiric meningitis dosing. 4. IV acyclovir 10 mg/kg q.8 hours for empiric treatment of HSV encephalitis. 5. HIV rapid test. 6. Serum RPR to rule out syphilis. 7. Serum West Nile virus IgM. 8. Droplet precautions for possible but unlikely bacterial meningitis. 9. MRI of the brain with contrast when able, but for now, we will empirically treat. 10. He denied any diarrhea and I think getting stool enterovirus culture is of limited utility here and enterovirus encephalitis would be essentially diagnosed for exclusion. 11. He did not have any history of recent immunizations, so I am not particularly suspicious for acute disseminated encephalomyelitis. 12. Monitor daily CBC. 13. Monitor temperature curve. 14. Supportive care including additional volume resuscitation as indicated. Thank you for this consultation. I am covering for Dr. Michele Biggs. For any questions, please do not hesitate to contact me directly at phone number . Uriel Morillo MD DR: MIGUEL JOB#: [id number] CC:
[2016-12-22 04:00] VITALS: BP 150/87
[2016-12-22] MEDS: Acyclovir 750 MG in NS 110 ML IV SCH ×3 (06:04→21:55)
[2016-12-22] MEDS: Vancomycin 1gm/D5W 275ml IVPB SCH ×4 (06:05→17:41)
[2016-12-22 07:02] LABS: BASOPHILS % (AUTO) 0.7 % (0.0-2.0); EOSINOPHILS % (AUTO) 1.6 % (0.0-3.0); LYMPHOCYTES % (AUTO) 9.8 % (20.0-45.0); MEAN CORPUSCULAR HEMOGLOBIN 27.4 PG (27.0-31.0); MEAN CORPUSCULAR HGB CONC 31.7 G/DL (32.0-36.0); MEAN CORPUSCULAR VOLUME 86 FL (80-99); MEAN PLATELET VOLUME 5.5 FL (6.5-10.1); MONOCYTES % (AUTO) 5.9 % (1.0-10.0); NEUTROPHILS % (AUTO) 81.9 % (45.0-75.0); PLATELET COUNT 482 K/UL (150-450); RED BLOOD COUNT 3.74 M/UL (4.70-6.10); RED CELL DISTRIBUTION WIDTH 14.9 % (11.6-14.8); WHITE BLOOD COUNT 12.1 K/UL (4.8-10.8)
[2016-12-22 07:13] LABS: ALANINE AMINOTRANSFERASE 11 U/L (3-41); ANION GAP 15 (5-15); ASPARTATE AMINO TRANSFERASE 18 U/L (5-40); CARBON DIOXIDE 25 mEQ/L (20-30); CHLORIDE 98 mEQ/L (98-107); CREATININE 0.8 mg/dL (0.7-1.2); GLOMERULAR FILTRATION RATE > 60 mL/min (>60); HEMOLYSIS 2; POTASSIUM 3.5 mEQ/L (3.4-4.9); SODIUM 138 mEQ/L (135-145); TOTAL PROTEIN 7.3 g/dL (6.6-8.7)
[2016-12-22 07:17] LABS: CRP QUANT 1.6 mg/dL (< 0.5); MAGNESIUM 1.6 mg/dL (1.7-2.5); PHOSPHORUS 3.8 mg/dL (2.5-4.8)
[2016-12-22 07:45] LABS: TROPONIN I < 0.30 ng/mL (<=0.30)
[2016-12-22 08:00] VITALS: BP 158/102
[2016-12-22] MEDS: Heparin 5000 units/ml inj SUBQ SCH ×2 (08:28→21:16)
[2016-12-22] MEDS: Metoprolol 25mg tab NG SCH ×2 (08:29→21:15)
--- NOTE | 2016-12-22 09:43 | Diagnostic Imaging Report ---
Indication: Post nasogastric tube placement Technique: Supine view of the abdomen Comparison: none Findings: There is a nasogastric tube in place. The tip is projected at the level gastric fundus. The proximal port appears to be at the level of the gastroesophageal junction. Impression: Intragastric position of tip of NG tube. However, the proximal port is at the level of the gastroesophageal junction, and advancement should be considered. Findings discussed by phone with patient's nurse at the time of interpretation
[2016-12-22] MEDS: cefTRIAXone 2 GM in D5W 110 ML IVPB SCH ×2 (09:45→20:15)
--- NOTE | 2016-12-22 10:06 | Pulmonology Progress Note ---
Assessment/Plan Assessment/Plan ASSESSMENT possible sepsis encephalitis possible meningitis ( less likely) multiinfarct brain disease acute toxic metabolic encephalopathy ( likely 2 to sepsis) on chronic multiinfarct dementia HTN lactic acidosis-resolved anemia PLAN OF CARE tele IVF abx ID follows urine cx negative, blood cx preliminary negative isolation attempted in ED unsuccessful LP x4 CT head no acute intracranial pathology, but c/w multiple old infarcts neuro follows MRI brain EEG CXR no acute cardiopulmonary disease O2 HHN prn NGT tube, meds vis NGT, confirm placement via abd X ray psych follows no antipsychosis -per psych and control agitation with benzo replace Mg ( 1.6 today) BP management with CCB and BB ( increase BB dose) monitor HH DVT prophylaxis case discussed and evaluated by supervising physician SHAUNAO maximiliano NEVILLE Subjective Allergies: Coded Allergies: ATORVASTATIN (Verified Allergy, Unknown, 12/20/16) Subjective leukocytosis trending down, afebrile on isolation Objective Last 24 Hour Vital Signs Date Time Temp Pulse Resp B/P (MAP) Pulse Ox O2 Delivery O2 Flow Rate FiO2 12/22/16 08:29 103 158/102 12/22/16 08:29 103 158/102 12/22/16 08:00 98.0 103 20 158/102 98 Room Air 12/22/16 04:00 97.9 92 19 150/87 96 Room Air 12/22/16 04:00 2.0 12/22/16 04:00 94 12/22/16 00:00 109 12/22/16 00:00 97.3 110 20 155/86 93 Nasal Cannula 1.0 12/21/16 21:32 93 163/100 12/21/16 20:00 93 12/21/16 20:00 2.0 12/21/16 20:00 97.7 93 18 163/100 95 Nasal Cannula 2.0 12/21/16 16:10 2.0 12/21/16 16:00 96 12/21/16 16:00 97.0 100 21 171/90 93 Nasal Cannula 2.0 12/21/16 12:00 2.0 12/21/16 12:00 97.2 96 20 161/90 98 Nasal Cannula 2.0 General Appearance: no acute distress, other - awake, poorly responsive , bedridden male in NAD HEENT: normocephalic, atraumatic, anicteric, other - NGT Respiratory/Chest: no respiratory distress, no accessory muscle use, decreased breath sounds Cardiovascular: normal rate, regular rhythm - SR-ST on tele , no JVD Abdomen: normal bowel sounds, soft, non tender, non distended Extremities: no edema Neurologic/Psychiatric: abnormal gait - bedridden , other - awake, poorly resposnive, w/draws to touch, cogwheel spasticity BUE, R>L, moves LE , tremors Musculoskeletal: atrophy - BLE Microbiology Date/Time Source Procedure Growth Status 12/20/16 23:00 Blood Blood Culture - Preliminary NO GROWTH AFTER 24 HOURS Resulted 12/20/16 22:55 Blood Blood Culture - Preliminary NO GROWTH AFTER 24 HOURS Resulted 12/21/16 01:40 Urine,Clean Catch Urine Culture - Preliminary NO GROWTH Resulted Laboratory Tests 12/21/16 21:10: Hemoglobin A1c 5.1, Vitamin B12 Level 255, Vitamin D 25-Hydroxy [Pending], 25- Hydroxy Vitamin D2 [Pending], 25-Hydroxy Vitamin D3 [Pending], Folate [Pending] 12/22/16 05:10: White Blood Count 12.1H, Red Blood Count 3.74L, Hemoglobin 10.3L, Hematocrit 32.3L, Mean Corpuscular Volume 86, Mean Corpuscular Hemoglobin 27.4, Mean Corpuscular Hemoglobin Concent 31.7L, Red Cell Distribution Width 14.9H, Platelet Count 482H, Mean Platelet Volume 5.5L, Neutrophils (%) (Auto) 81.9H, Lymphocytes (%) (Auto) 9.8L, Monocytes (%) (Auto) 5.9, Eosinophils (%) (Auto) 1.6, Basophils (%) (Auto) 0.7, Erythrocyte Sedimentation Rate 56H, Sodium Level 138, Potassium Level 3.5, Chloride Level 98, Carbon Dioxide Level 25, Anion Gap 15, Blood Urea Nitrogen 8, Creatinine 0.8, Estimat Glomerular Filtration Rate > 60, Glucose Level 118H, Calcium Level 10.0, Phosphorus Level 3.8, Magnesium Level 1.6L, Total Bilirubin 0.4, Aspartate Amino Transf (AST/SGOT) 18, Alanine Aminotransferase (ALT/SGPT) 11, Alkaline Phosphatase 102, Troponin I < 0.30, C- Reactive Protein, Quantitative 1.6H, Total Protein 7.3, Albumin 3.7, Globulin 3.6, Albumin/Globulin Ratio 1.0 Current Medications Medications (Trade) Dose Ordered Sig/Treasure Route PRN Reason Start Time Stop Time Status Last Admin Dose Admin Acetaminophen (Tylenol) 650 mg Q6H PRN GT Mild Pain/Temp > 100.5 12/21/16 20:00 01/20/17 06:44 Acyclovir 750 mg/ Sodium Chloride 110 ml @ 110 mls/hr Q8HR IV 12/21/16 19:30 12/28/16 19:29 12/22/16 06:04 Amlodipine Besylate (Norvasc) 5 mg DAILY GT 12/22/16 09:00 01/20/17 08:59 12/22/16 08:29 Ceftriaxone Sodium 2 gm/ Dextrose 110 ml @ 220 mls/hr Q12HR@0800,2000 IVPB 12/21/16 20:00 12/28/16 19:59 12/22/16 09:45 Dextrose/Sodium Chloride 1,000 ml @ 75 mls/hr [id number] IV 12/21/16 13:00 01/20/17 12:59 12/22/16 02:14 Heparin Sodium (Porcine) (Heparin 5000 units/ml) 5,000 units EVERY 12 HOURS SUBQ 12/21/16 09:00 01/20/17 08:59 12/22/16 08:28 Metoprolol Tartrate (Lopressor) 25 mg Q12HR NG 12/21/16 18:00 01/20/17 17:59 12/22/16 08:29 Ranitidine HCl (Zantac) 150 mg TWICE A DAY GT 12/22/16 09:00 01/20/17 08:59 12/22/16 08:29 Vancomycin HCl (Vanco rx to dose) 1 ea DAILY PRN MISC Per rx protocol 12/21/16 06:45 01/20/17 06:44 Vancomycin HCl 1 gm/Dextrose 275 ml @ 183.708 mls/hr Q12HR@0600,1800 IVPB 12/21/16 18:30 12/26/16 18:29 12/22/16 06:05 Lacy Overton NP (Vanchtein) Dec 22, 2016 10:05
[2016-12-22 12:00] VITALS: BP 152/103
[2016-12-22] MEDS ORDERED: LORazepam Inj 2mg/ml 1ml IV ONE (15:30)
[2016-12-22] MEDS ORDERED: levETIRAcetam 1,000mg/NS100ml 100 ML IVPB ONE (15:35)
[2016-12-22 16:00] VITALS: BP 147/90
--- NOTE | 2016-12-22 16:50 | Infectious Diseases Prog Note ---
Assessment/Plan Assessment/Plan ASSESSMENT 66 y/o cachectic AAM with contractures, admitted with fever, altered sensorium, and leukocytosis with left shift w/o rash, w/o hemodynamic instability, w/o cytopenias, w/o hepatitis. Leading diagnosis is probable viral encephalitis, much less likely bacterial process, or also likely is toxic encephalopathy secondary to systemic process. He carries a diagnosis of dementia, but wonder if he might have some component of parkinsonisms as his underlying disease. No evidence of immunocompromise. s/p EEG earlier today, and although non specific I'll be interested to hear if it has a uni- or bilaterial periodic sharp waves, focal or generalized slow waves, or electrical seizures that could be consistent with HSV encephaliltis. for now we'll dose his meds for a weight of 55kg. discussed with pharmacy last night. Encephalitis vs toxic encephalopathy vs less likely ADEM. most likely infectious (viral) causes include HSV, enterovirus, or WNV. Rule out bacterrial meningoencephalitis, less likely. Rule out urosepsis. Rule out bacteremia. Leukocytosis, improving Elevated serum lactate, resolved. Hemodynamically stable, elevated BP. History of ischemic cerebrovascular accident and possible parkinsonism. HIV screen negative RECOMMENDATIONS: Continue empiric therapy with IV ceftriaxone 2gm IV q12hr, IV vancomycin for troughs >20, IV ACV 10mg/kg q8hr, D#1 f/u Serum RPR to rule out syphilis. f/u Serum West Nile virus IgM. Continue Droplet precautions for possible but unlikely bacterial meningitis. Can d/c once he's been on abx for 72 hrs. MRI of the brain with contrast when able, but for now, we will empirically treat. Monitor daily CBC. Monitor temperature curve. Supportive care including additional volume resuscitation as indicated. ensure adequate hydration to decrease risk of ACV induced crystalluria. f/u EEG. r/o uni- or bilaterial periodic sharp waves, focal or generalized slow waves, or electrical seizures that could be consistent with early HSV encephaliltis. Thank you for this consultation. I am covering for Dr. Michele Biggs. For any questions, please do not hesitate to contact me directly at phone number . Subjective ROS Limited/Unobtainable: Yes Allergies: Coded Allergies: ATORVASTATIN (Verified Allergy, Unknown, 12/20/16) Subjective mental status unchanged from yesterday. IV ACV started at approximately 19:00 on [id number]. Objective Vital Signs Last 24 Hour Vital Signs Date Time Temp Pulse Resp B/P (MAP) Pulse Ox O2 Delivery O2 Flow Rate FiO2 12/22/16 12:00 97.3 90 22 152/103 97 Nasal Cannula 3.0 12/22/16 08:29 103 158/102 12/22/16 08:29 103 158/102 12/22/16 08:00 101 12/22/16 08:00 98.0 103 20 158/102 98 Room Air 12/22/16 08:00 2.0 12/22/16 04:00 97.9 92 19 150/87 96 Room Air 12/22/16 04:00 2.0 12/22/16 04:00 94 12/22/16 00:00 109 12/22/16 00:00 97.3 110 20 155/86 93 Nasal Cannula 1.0 12/21/16 21:32 93 163/100 12/21/16 20:00 93 12/21/16 20:00 2.0 12/21/16 20:00 97.7 93 18 163/100 95 Nasal Cannula 2.0 Height (Feet): 5 Height (Inches): 6.00 Weight (Pounds): 120 Objective GENERAL: Eyes are open, but not particularly responsive. He does withdraw to pain and is not in extremis. HEENT: He has no oral lesions. Oral mucosa is dry. Conjunctiva is pale and pink without conjunctival injection. Spontaneous extraocular muscles are intact, but he does have a kind of static rightward gaze at baseline and he is favoring his head looking in the rightward direction. His head is normocephalic, atraumatic without any skin lesions. NECK: Supple without any nuchal rigidity or meningismus. He has no carotid bruits. CARDIOVASCULAR: Borderline tachycardic. No murmur appreciated. No rubs or gallops. His PMI is not displaced laterally. LUNGS: Clear to auscultation bilaterally. ABDOMEN: No hepatosplenomegaly. No tenderness to palpation. No rebound or guarding. His abdomen is flat and soft. EXTREMITIES: Somewhat cachectic, thin, tall man. He has no lower extremity edema. He has thick dystrophic nails. Pulses are intact distally. He has no cyanosis or mottling. His extremities are warm to touch. He does have a few scattered superficial abrasions to his right santa but he has no petechiae, no purpura, and no ecchymoses of any kind. GENITOURINARY: He has no scrotal edema. No erythema. No focal mass or fluctuance appreciated. He is uncircumcised without any lesions or drainage from the penis. condom urinary catheter in place draining yellow urine. RECTAL: No perirectal lesions appreciated. He has normal rectal tone. NEUROLOGIC: He is quite contracted. He does withdraw to pain. He does have subtle cogwheel rigidity in his right greater than left upper extremity. His deep tendon reflexes are 2+, equal and symmetric throughout. He does move all four extremities spontaneously and he has no focal tenderness to palpation. Microbiology Date/Time Source Procedure Growth Status 12/20/16 23:00 Blood Blood Culture - Preliminary NO GROWTH AFTER 24 HOURS Resulted 12/20/16 22:55 Blood Blood Culture - Preliminary NO GROWTH AFTER 24 HOURS Resulted 12/21/16 01:40 Urine,Clean Catch Urine Culture - Preliminary NO GROWTH Resulted Laboratory Tests Test 12/21/16 21:10 12/22/16 05:10 Hemoglobin A1c 5.1 % (< 6.0) Vitamin B12 Level 255 pg/mL (211-946) Vitamin D 25-Hydroxy Pending 25-Hydroxy Vitamin D2 Pending 25-Hydroxy Vitamin D3 Pending Folate Pending White Blood Count 12.1 K/UL (4.8-10.8) H Red Blood Count 3.74 M/UL (4.70-6.10) L Hemoglobin 10.3 G/DL (14.2-18.0) L Hematocrit 32.3 % (42.0-52.0) L Mean Corpuscular Volume 86 FL (80-99) Mean Corpuscular Hemoglobin 27.4 PG (27.0-31.0) Mean Corpuscular Hemoglobin Concent 31.7 G/DL (32.0-36.0) L Red Cell Distribution Width 14.9 % (11.6-14.8) H Platelet Count 482 K/UL (150-450) H Mean Platelet Volume 5.5 FL (6.5-10.1) L Neutrophils (%) (Auto) 81.9 % (45.0-75.0) H Lymphocytes (%) (Auto) 9.8 % (20.0-45.0) L Monocytes (%) (Auto) 5.9 % (1.0-10.0) Eosinophils (%) (Auto) 1.6 % (0.0-3.0) Basophils (%) (Auto) 0.7 % (0.0-2.0) Erythrocyte Sedimentation Rate 56 MM/HR (0-20) H Sodium Level 138 mEQ/L (135-145) Potassium Level 3.5 mEQ/L (3.4-4.9) Chloride Level 98 mEQ/L (98-107) Carbon Dioxide Level 25 mEQ/L (20-30) Anion Gap 15 (5-15) Blood Urea Nitrogen 8 mg/dL (7-23) Creatinine 0.8 mg/dL (0.7-1.2) Estimat Glomerular Filtration Rate > 60 mL/min (>60) Glucose Level 118 mg/dL (74-106) H Calcium Level 10.0 mg/dL (8.6-10.2) Phosphorus Level 3.8 mg/dL (2.5-4.8) Magnesium Level 1.6 mg/dL (1.7-2.5) L Total Bilirubin 0.4 mg/dL (0.0-1.2) Aspartate Amino Transf (AST/SGOT) 18 U/L (5-40) Alanine Aminotransferase (ALT/SGPT) 11 U/L (3-41) Alkaline Phosphatase 102 U/L (40-129) Troponin I < 0.30 ng/mL (<=0.30) C-Reactive Protein, Quantitative 1.6 mg/dL (< 0.5) H Total Protein 7.3 g/dL (6.6-8.7) Albumin 3.7 g/dL (3.5-5.2) Globulin 3.6 g/dL Albumin/Globulin Ratio 1.0 (1.0-2.7) Current Medications Medications (Trade) Dose Ordered Sig/Treasure Route PRN Reason Start Time Stop Time Status Last Admin Dose Admin Acetaminophen (Tylenol) 650 mg Q6H PRN GT Mild Pain/Temp > 100.5 12/21/16 20:00 01/20/17 06:44 Acyclovir 750 mg/ Sodium Chloride 110 ml @ 110 mls/hr Q8HR IV 12/21/16 19:30 12/28/16 19:29 12/22/16 15:40 Amlodipine Besylate (Norvasc) 5 mg DAILY GT 12/22/16 09:00 01/20/17 08:59 12/22/16 08:29 Ceftriaxone Sodium 2 gm/ Dextrose 110 ml @ 220 mls/hr Q12HR@0800,2000 IVPB 12/21/16 20:00 12/28/16 19:59 12/22/16 09:45 Dextrose/Sodium Chloride 1,000 ml @ 75 mls/hr [id number] IV 12/21/16 13:00 01/20/17 12:59 12/22/16 02:14 Heparin Sodium (Porcine) (Heparin 5000 units/ml) 5,000 units EVERY 12 HOURS SUBQ 12/21/16 09:00 01/20/17 08:59 12/22/16 08:28 Metoprolol Tartrate (Lopressor) 50 mg Q12HR NG 12/22/16 21:00 01/21/17 20:59 Ranitidine HCl (Zantac) 150 mg TWICE A DAY GT 12/22/16 09:00 01/20/17 08:59 12/22/16 08:29 Vancomycin HCl (Vanco rx to dose) 1 ea DAILY PRN MISC Per rx protocol 12/21/16 06:45 01/20/17 06:44 Vancomycin HCl 1 gm/Dextrose 275 ml @ 183.708 mls/hr Q12HR@0600,1800 IVPB 12/21/16 18:30 12/26/16 18:29 12/22/16 06:05 Uriel Morillo M.D. Dec 22, 2016 16:50
--- NOTE | 2016-12-22 18:09 | General Progress Note ---
Assessment/Plan Status: unchanged Assessment/Plan 1. Sepsis, sources including, but not limited to meningitis. 2. Meningoencephalitis-the presumable diagnosis-lumbar puncture cannot be obtained secondary to patient's posture. 3. Cerebrovascular accident-history of. 4. Tremor like movements: Sz activity? 4. Anemia. 5. Anxiety/depression. 6. Gastrointestinal and deep vein thrombosis prophylaxis continue isolation, secondary to possibility of item#2 notes from ID, Neuro are reviewed Subjective ROS Limited/Unobtainable: Yes Allergies: Coded Allergies: ATORVASTATIN (Verified Allergy, Unknown, 12/20/16) Objective Last 24 Hour Vital Signs Date Time Temp Pulse Resp B/P (MAP) Pulse Ox O2 Delivery O2 Flow Rate FiO2 12/22/16 16:00 98.1 109 20 147/90 97 Nasal Cannula 2.0 12/22/16 16:00 2.0 12/22/16 15:39 95 12/22/16 12:00 2.0 12/22/16 12:00 97.3 90 22 152/103 97 Nasal Cannula 3.0 12/22/16 11:34 91 12/22/16 08:29 103 158/102 12/22/16 08:29 103 158/102 12/22/16 08:00 101 12/22/16 08:00 98.0 103 20 158/102 98 Room Air 12/22/16 08:00 2.0 12/22/16 04:00 97.9 92 19 150/87 96 Room Air 12/22/16 04:00 2.0 12/22/16 04:00 94 12/22/16 00:00 109 12/22/16 00:00 97.3 110 20 155/86 93 Nasal Cannula 1.0 12/21/16 21:32 93 163/100 12/21/16 20:00 93 12/21/16 20:00 2.0 12/21/16 20:00 97.7 93 18 163/100 95 Nasal Cannula 2.0 Laboratory Tests 12/21/16 21:10: Hemoglobin A1c 5.1, Vitamin B12 Level 255, Vitamin D 25-Hydroxy [Pending], 25- Hydroxy Vitamin D2 [Pending], 25-Hydroxy Vitamin D3 [Pending], Folate [Pending] 12/22/16 05:10: White Blood Count 12.1H, Red Blood Count 3.74L, Hemoglobin 10.3L, Hematocrit 32.3L, Mean Corpuscular Volume 86, Mean Corpuscular Hemoglobin 27.4, Mean Corpuscular Hemoglobin Concent 31.7L, Red Cell Distribution Width 14.9H, Platelet Count 482H, Mean Platelet Volume 5.5L, Neutrophils (%) (Auto) 81.9H, Lymphocytes (%) (Auto) 9.8L, Monocytes (%) (Auto) 5.9, Eosinophils (%) (Auto) 1.6, Basophils (%) (Auto) 0.7, Erythrocyte Sedimentation Rate 56H, Sodium Level 138, Potassium Level 3.5, Chloride Level 98, Carbon Dioxide Level 25, Anion Gap 15, Blood Urea Nitrogen 8, Creatinine 0.8, Estimat Glomerular Filtration Rate > 60, Glucose Level 118H, Calcium Level 10.0, Phosphorus Level 3.8, Magnesium Level 1.6L, Total Bilirubin 0.4, Aspartate Amino Transf (AST/SGOT) 18, Alanine Aminotransferase (ALT/SGPT) 11, Alkaline Phosphatase 102, Troponin I < 0.30, C- Reactive Protein, Quantitative 1.6H, Total Protein 7.3, Albumin 3.7, Globulin 3.6, Albumin/Globulin Ratio 1.0 Height (Feet): 5 Height (Inches): 6.00 Weight (Pounds): 120 General Appearance: no apparent distress EENT: PERRL/EOMI Neck: supple Extremities: other - hyper reflexai and ridgidity Neurologic: disoriented - not verbal. not follow the commands Gerard Kelley MD Dec 22, 2016 18:09
[2016-12-22] MEDS ORDERED: NS 275ml ONE (19:54)
[2016-12-22] MEDS ORDERED: D5 1/2NS 1000ml IV ONE ×2 (19:54→19:59)
[2016-12-22] MEDS ORDERED: Tubing IV Secondary IV ONE (19:54)
[2016-12-22 20:00] VITALS: BP 141/87
--- NOTE | 2016-12-22 20:26 | Neurology Progress Note ---
Interim History Interim History Interim History Mr. Sims is poorly responsive now. He is having right shoulder partial seizures. I got a call earlier that he was he was having left UE seizures. He was given Ativan 2 mg IV and Keppra 1 G IV. The seizures decreased but did not resolve. Review of Systems Neuro Review of Systems Unable to obtain. Objective Physical Exam Last Vital Signs Date Time Temp Pulse Resp B/P (MAP) Pulse Ox O2 Delivery O2 Flow Rate FiO2 12/22/16 16:00 98.1 109 20 147/90 97 Nasal Cannula 2.0 Laboratory Tests Test 12/21/16 21:10 12/22/16 05:10 Hemoglobin A1c 5.1 % (< 6.0) Vitamin B12 Level 255 pg/mL (211-946) Vitamin D 25-Hydroxy Pending 25-Hydroxy Vitamin D2 Pending 25-Hydroxy Vitamin D3 Pending Folate Pending White Blood Count 12.1 K/UL (4.8-10.8) H Red Blood Count 3.74 M/UL (4.70-6.10) L Hemoglobin 10.3 G/DL (14.2-18.0) L Hematocrit 32.3 % (42.0-52.0) L Mean Corpuscular Volume 86 FL (80-99) Mean Corpuscular Hemoglobin 27.4 PG (27.0-31.0) Mean Corpuscular Hemoglobin Concent 31.7 G/DL (32.0-36.0) L Red Cell Distribution Width 14.9 % (11.6-14.8) H Platelet Count 482 K/UL (150-450) H Mean Platelet Volume 5.5 FL (6.5-10.1) L Neutrophils (%) (Auto) 81.9 % (45.0-75.0) H Lymphocytes (%) (Auto) 9.8 % (20.0-45.0) L Monocytes (%) (Auto) 5.9 % (1.0-10.0) Eosinophils (%) (Auto) 1.6 % (0.0-3.0) Basophils (%) (Auto) 0.7 % (0.0-2.0) Erythrocyte Sedimentation Rate 56 MM/HR (0-20) H Sodium Level 138 mEQ/L (135-145) Potassium Level 3.5 mEQ/L (3.4-4.9) Chloride Level 98 mEQ/L (98-107) Carbon Dioxide Level 25 mEQ/L (20-30) Anion Gap 15 (5-15) Blood Urea Nitrogen 8 mg/dL (7-23) Creatinine 0.8 mg/dL (0.7-1.2) Estimat Glomerular Filtration Rate > 60 mL/min (>60) Glucose Level 118 mg/dL (74-106) H Calcium Level 10.0 mg/dL (8.6-10.2) Phosphorus Level 3.8 mg/dL (2.5-4.8) Magnesium Level 1.6 mg/dL (1.7-2.5) L Total Bilirubin 0.4 mg/dL (0.0-1.2) Aspartate Amino Transf (AST/SGOT) 18 U/L (5-40) Alanine Aminotransferase (ALT/SGPT) 11 U/L (3-41) Alkaline Phosphatase 102 U/L (40-129) Troponin I < 0.30 ng/mL (<=0.30) C-Reactive Protein, Quantitative 1.6 mg/dL (< 0.5) H Total Protein 7.3 g/dL (6.6-8.7) Albumin 3.7 g/dL (3.5-5.2) Globulin 3.6 g/dL Albumin/Globulin Ratio 1.0 (1.0-2.7) Neurologic Exam Objective PHYSICAL EXAMINATION: GENERAL: He is a well-developed, well-nourished, but lean black gentleman, lying in bed, with episodic clonic moments of his left shoulder. HEAD: Normocephalic and atraumatic. EENT: Examination benign. NECK: No neck rigidity was observed. He did, however, have decreased range of motion in all directions. NEUROLOGIC EXAMINATION: MENTAL STATUS EXAMINATION: He was lethargic. He was unable to cooperate for mental status tests. SPEECH: Could not be tested. LANGUAGE: Could not be tested. CRANIAL NERVE EXAMINATION: II: He had a right gaze preference. He did blink to threat on both sides. However, it was difficult to determine if his visual daly were intact or not. III, IV & : The external ocular movements were present on oculocephalic maneuvers. The pupils were 3 mm in diameter, equal, round, regular, and reactive to light. V & VII: The corneal reflex was significantly diminished on the left side compared to the right. He also had a left greater than right VII central facial paresis. VIII: He was able to hear and had no nystagmus. IX: The palate moved symmetrically on phonation. X: He had no hoarseness of voice. XI: The sternocleidomastoids and trapezii functioned normally. XII: The tongue was in the midline without any fasciculations or atrophy. MOTOR SYSTEM: The tone was increased in all four extremities with spasticity more marked on the left than on the right. Examination of muscle mass revealed contractures of the left hand and the left lower extremity. Examination of power was impossible to perform on individual muscle groups, however, the left upper extremity was plegic, the right upper extremity was paretic, and he had a left greater than right lower extremity paresis. SENSORY EXAMINATION: He responded to deep pain, but the response was more robust on right-sided stimulation than left-sided stimulation. REFLEXES: 0 at the biceps, triceps, brachioradialis, knees, and ankles. The plantar responses were extensor bilaterally. COORDINATION: Could not be tested. STANCE: Could not be tested. GAIT: Could not be tested. Impression/Recommendations Diagnostic Impression 1. Mr. Barry Sims is a 66-year-old, right-handed, black gentleman, with a past history of hypertension, multiple strokes involving the left body more than the right, aphasia, and dementia, who was recently moved to a senior care facility. He was noted to have an alteration in his mental state and some tremor-like movements there. As a result of that, he was brought in to the [facility] emergency room where he was diagnosed with sepsis. He was treated with antibiotics and fluids and was better. 2. This afternoon he started to have clonic movements of his right shoulder. He was given Ativan and Keppra for them and improved but the movements have not resolved. 3. On neurological examination, at this time, he is lethargic and is unable to cooperate for further mental status tests. He has a depressed left corneal reflex, left greater than right VII central facial paresis, left upper extremity plegia, right upper extremity paresis, left greater than right lower extremity paresis, absent deep tendon reflexes, and extensor plantar responses bilaterally. He is also having clonic movements of his right shoulder. 4. The CT scan of the brain without contrast reveals multiple old infarcts involving both hemispheres. 5. Laboratory data obtained thus far reveal a WBC count elevated to 18,500, an anemia with a hemoglobin of 11.0, glucose elevated to 142, and lactic acid elevated to 3.2. Normal TSH and normal electrolytes. His urinalysis reveals 2 + leukocyte esterase, 2 red blood cells, and 10 to 15 white blood cells per high -power field. His HIV 1 and 2 antibodies are negative. 6. His EEG revealed a moderate encephalopathy, right brain SPLEDS and then an electrographic seizure which started over the right hemisphere and then generalized and responded to Ativan. 7. 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 In addition he has had focal seizures involving his left shoulder. Recommendations 1. Continue present management. 2. Keppra 1 G IV q 12 hours. 3. Depacon 1 G IV now and then q 12 hours. 4. Ativan 2 mg IV q 6 H PRN if seizure generalizes. 5. Await MRI scan of the brain to determine if the patient has had the new cerebrovascular event. 6. Aggressive treatment of the patient's infectious process. Becca Mckeon M.D., M.S.P.Prema. BECCA MCKEON Dec 22, 2016 20:26
[2016-12-22] MEDS ORDERED: Valproate Sodium INJ 1,000 MG in D5W 55 ML IV ONE (20:30)
[2016-12-22] MEDS ORDERED: LORazepam Inj 2mg/ml 1ml IV PRN (20:30)
--- NOTE | 2016-12-22 21:30 | Electroencephalogram ---
DATE OF PROCEDURE: 12/22/2016 REQUESTING PHYSICIAN: Gerard Kelley M.D. HISTORY: This EEG was performed on a 66-year-old gentleman with history of multi-infarct brain disease, who was hospitalized for sepsis. He has had significant alteration in mental state and thus, this EEG was performed to evaluate the patient for the degree and type of cerebral dysfunction. TECHNICAL NOTE: This EEG was performed on a [employer] Unit with electrodes placed on the scalp according to the International 10-20 system. [id number] and [id number] montages were used. The EEG was technically satisfactory and was performed while the patient was in poorly responsive state. OBSERVATIONS: In the poorly responsive state, the background activity consisted of 4-5 Hz theta with intermixed delta frequencies. Sharp triphasic waveforms were also seen. The background was slower over the right hemisphere compared to the left hemisphere throughout the tracing. Semi-periodic lateralized epileptiform discharges predominantly over the right side were seen. The patient then had generalized epileptiform discharges involving the right side more than the left and this was associated with left shoulder jerking movements. These abnormal movements continued for a prolonged period of time and responded to 2 mg of Ativan. IMPRESSION: This is an abnormal electroencephalogram characterized by: 1. Slowing of the background in the 4-5 Hz theta range with intermixed delta frequencies. 2. The presence of sharp triphasic waveforms. 3. The presence of slower activity over the right hemisphere compared to the left hemisphere. 4. Right semi-periodic lateralized epileptiform discharges which then generalized and were associated with left shoulder jerking. COMMENT: This study is consistent with: 1. An encephalopathy of moderate degree. 2. Right greater than left brain dysfunction. 3. Interictal discharges emanating from the right hemisphere. 4. An electrographic seizure which started over the right brain and then generalized associated with left shoulder twitching. Frantz Mckeon M.D., M.S.P.H. DR: KIERRA JOB#: [id number] [facility]ITALLevy
[2016-12-23] VITALS: BP 126/71
[2016-12-23 03:56] VITALS: BP 140/78
[2016-12-23] MEDS: Acyclovir 750 MG in NS 110 ML IV SCH (04:56)
[2016-12-23] MEDS: D5 1/2NS 1,000 ML IV SCH ×2 (04:56→18:24)
[2016-12-23] MEDS: Vancomycin 1gm/D5W 275ml IVPB SCH ×2 (05:55)
--- NOTE | 2016-12-23 07:43 | General Progress Note ---
Assessment/Plan Status: stable Assessment/Plan 1. Sepsis, sources including, but not limited to meningitis. 2. Meningoencephalitis-the presumable diagnosis-lumbar puncture cannot be obtained secondary to patient's posture. 3. Cerebrovascular accident-history of. 4. Sz d/o 5. Encephalopathy- Acute on Chronic 4. Anemia. 5. Anxiety/depression. 6. Gastrointestinal and deep vein thrombosis prophylaxis abnormal EEG, continue with sz treatment. Awaiting Brain MRI notes from ID, Neuro are reviewed Subjective ROS Limited/Unobtainable: Yes Allergies: Coded Allergies: ATORVASTATIN (Verified Allergy, Unknown, 12/20/16) Objective Last 24 Hour Vital Signs Date Time Temp Pulse Resp B/P (MAP) Pulse Ox O2 Delivery O2 Flow Rate FiO2 12/23/16 04:00 2.0 12/23/16 04:00 73 12/23/16 03:56 98.2 84 20 140/78 98 Nasal Cannula 2.0 12/23/16 00:00 83 12/23/16 00:00 2.0 12/23/16 00:00 97.9 89 20 126/71 98 Nasal Cannula 2.0 12/22/16 22:02 97 Nasal Cannula 2.0 12/22/16 22:02 Nasal Cannula 2.0 28 12/22/16 21:15 114 146/91 12/22/16 20:00 101 12/22/16 20:00 98.4 101 20 141/87 97 Nasal Cannula 2.0 12/22/16 16:00 98.1 109 20 147/90 97 Nasal Cannula 2.0 12/22/16 16:00 2.0 12/22/16 15:39 95 12/22/16 12:00 2.0 12/22/16 12:00 97.3 90 22 152/103 97 Nasal Cannula 3.0 12/22/16 11:34 91 12/22/16 08:29 103 158/102 12/22/16 08:29 103 158/102 12/22/16 08:00 101 12/22/16 08:00 98.0 103 20 158/102 98 Room Air 12/22/16 08:00 2.0 Height (Feet): 5 Height (Inches): 6.00 Weight (Pounds): 120 General Appearance: lethargic EENT: PERRL/EOMI Neck: supple Cardiovascular: normal rate Respiratory/Chest: lungs clear Abdomen: soft Extremities: other - rigid extremities. limited exam as not following commands Neurologic: disoriented - not following commands. not verbal Gerard Kelley MD Dec 23, 2016 07:43
[2016-12-23 07:55] VITALS: BP 138/70
[2016-12-23] MEDS: levETIRAcetam 1,000mg/NS100ml 100 ML IVPB SCH ×2 (08:30→21:26)
[2016-12-23] MEDS: cefTRIAXone 2 GM in D5W 110 ML IVPB SCH ×2 (08:30→20:00)
[2016-12-23] MEDS: Metoprolol 25mg tab NG SCH ×2 (08:31→21:00)
[2016-12-23] MEDS: Valproate Sodium INJ 1,000 MG in D5W 55 ML IV SCH ×2 (08:32→21:00)
[2016-12-23] MEDS: Heparin 5000 units/ml inj SUBQ SCH ×2 (08:34→21:00)
[2016-12-23 09:22] LABS: BASOPHILS % (AUTO) 0.7 % (0.0-2.0); EOSINOPHILS % (AUTO) 5.2 % (0.0-3.0); MEAN CORPUSCULAR HEMOGLOBIN 27.2 PG (27.0-31.0); MEAN CORPUSCULAR HGB CONC 31.8 G/DL (32.0-36.0); MEAN CORPUSCULAR VOLUME 86 FL (80-99); MEAN PLATELET VOLUME 5.2 FL (6.5-10.1); MONOCYTES % (AUTO) 9.8 % (1.0-10.0); NEUTROPHILS % (AUTO) 75.3 % (45.0-75.0); PLATELET COUNT 407 K/UL (150-450); RED BLOOD COUNT 3.59 M/UL (4.70-6.10); RED CELL DISTRIBUTION WIDTH 15.1 % (11.6-14.8); WHITE BLOOD COUNT 9.4 K/UL (4.8-10.8)
[2016-12-23 09:36] LABS: TROPONIN I < 0.30 ng/mL (<=0.30)
[2016-12-23 09:50] LABS: CALCIUM 8.5 mg/dL (8.6-10.2); CREATININE 1.5 mg/dL (0.7-1.2); GLOMERULAR FILTRATION RATE 46.5 mL/min (>60); POTASSIUM 3.5 mEQ/L (3.4-4.9)
[2016-12-23 11:23] VITALS: BP 147/86
--- NOTE | 2016-12-23 11:43 | Pulmonology Progress Note ---
Assessment/Plan Problems: (1) Sepsis (2) Altered level of consciousness (3) COPD (chronic obstructive pulmonary disease) (4) History of CVA (cerebrovascular accident) Assessment/Plan afebrile, anemia w/u all cultures negative sofar improving check cbc, bmp in am all meds and notes reviewed. Subjective ROS Limited/Unobtainable: Yes Interval Events: has tremors on left arm, sedated Constitutional: Reports: no symptoms HEENT: Repors: no symptoms Respiratory: Reports: no symptoms Allergies: Coded Allergies: ATORVASTATIN (Verified Allergy, Unknown, 12/20/16) Objective Last 24 Hour Vital Signs Date Time Temp Pulse Resp B/P (MAP) Pulse Ox O2 Delivery O2 Flow Rate FiO2 12/23/16 11:23 97.7 75 20 147/86 98 Nasal Cannula 1.0 12/23/16 08:31 89 138/70 12/23/16 08:31 89 138/70 12/23/16 07:55 97.2 89 20 138/70 96 Nasal Cannula 1.0 12/23/16 07:31 Nasal Cannula 2.0 28 12/23/16 07:30 97 Nasal Cannula 2.0 12/23/16 04:00 2.0 12/23/16 04:00 73 12/23/16 03:56 98.2 84 20 140/78 98 Nasal Cannula 2.0 12/23/16 00:00 83 12/23/16 00:00 2.0 12/23/16 00:00 97.9 89 20 126/71 98 Nasal Cannula 2.0 12/22/16 22:02 97 Nasal Cannula 2.0 12/22/16 22:02 Nasal Cannula 2.0 28 12/22/16 21:15 114 146/91 12/22/16 20:00 101 12/22/16 20:00 98.4 101 20 141/87 97 Nasal Cannula 2.0 12/22/16 16:00 98.1 109 20 147/90 97 Nasal Cannula 2.0 12/22/16 16:00 2.0 12/22/16 15:39 95 12/22/16 12:00 2.0 12/22/16 12:00 97.3 90 22 152/103 97 Nasal Cannula 3.0 General Appearance: cachetic HEENT: normocephalic, atraumatic Respiratory/Chest: chest wall non-tender, lungs clear Cardiovascular: normal peripheral pulses, normal rate Abdomen: normal bowel sounds, soft, non tender, no scars Extremities: no cyanosis, no clubbing Skin: no rash Microbiology Date/Time Source Procedure Growth Status 12/20/16 23:00 Blood Blood Culture - Preliminary NO GROWTH AFTER 48 HOURS Resulted 12/20/16 22:55 Blood Blood Culture - Preliminary NO GROWTH AFTER 48 HOURS Resulted 12/21/16 00:55 Nasal Nares MRSA Culture - Final NO METHICILLIN RESISTANT STAPH AUREUS... Complete 12/21/16 01:40 Urine,Clean Catch Urine Culture - Preliminary NO GROWTH AFTER 24 HOURS Resulted 12/21/16 00:55 Rectum VRE Culture - Final NO VANCOMYCIN RESISTANT ENTEROCOCCUS ... Complete Laboratory Tests 12/23/16 09:10: White Blood Count 9.4, Red Blood Count 3.59L, Hemoglobin 9.8L, Hematocrit 30.8L , Mean Corpuscular Volume 86, Mean Corpuscular Hemoglobin 27.2, Mean Corpuscular Hemoglobin Concent 31.8L, Red Cell Distribution Width 15.1H, Platelet Count 407, Mean Platelet Volume 5.2L, Neutrophils (%) (Auto) 75.3H, Lymphocytes (%) (Auto) 9.0L, Monocytes (%) (Auto) 9.8, Eosinophils (%) (Auto) 5.2H, Basophils (%) (Auto) 0.7, Sodium Level 135, Potassium Level 3.5, Chloride Level 97L, Carbon Dioxide Level 24, Anion Gap 14, Blood Urea Nitrogen 11, Creatinine 1.5#H, Estimat Glomerular Filtration Rate 46.5, Glucose Level 121H, Calcium Level 8.5L, Troponin I < 0.30 Current Medications Medications (Trade) Dose Ordered Sig/Treasure Route PRN Reason Start Time Stop Time Status Last Admin Dose Admin Acetaminophen (Tylenol) 650 mg Q6H PRN GT Mild Pain/Temp > 100.5 12/21/16 20:00 01/20/17 06:44 Acyclovir 750 mg/ Sodium Chloride 110 ml @ 110 mls/hr Q12HR@0600,1800 IV 12/23/16 18:00 01/22/17 17:59 Amlodipine Besylate (Norvasc) 5 mg DAILY GT 12/22/16 09:00 01/20/17 08:59 12/23/16 08:31 Ceftriaxone Sodium 2 gm/ Dextrose 110 ml @ 220 mls/hr Q12HR@0800,2000 IVPB 12/21/16 20:00 12/28/16 19:59 12/23/16 08:30 Dextrose/Sodium Chloride 1,000 ml @ 75 mls/hr [id number] IV 12/21/16 13:00 01/20/17 12:59 12/23/16 04:56 Heparin Sodium (Porcine) (Heparin 5000 units/ml) 5,000 units EVERY 12 HOURS SUBQ 12/21/16 09:00 01/20/17 08:59 12/23/16 08:34 Levetiracetam 100 ml @ 400 mls/hr Q12HR IVPB 12/23/16 09:00 01/22/17 08:59 12/23/16 08:30 Lorazepam (Ativan 2mg/ml 1ml) 2 mg Q6H PRN IV For Seizures 12/22/16 20:30 12/29/16 20:29 Metoprolol Tartrate (Lopressor) 50 mg Q12HR NG 12/22/16 21:00 01/21/17 20:59 12/23/16 08:31 Ranitidine HCl (Zantac) 150 mg DAILY GT 12/24/16 09:00 01/21/17 08:59 Valproate Sodium 1000 mg/Dextrose 65 ml @ 32.5 mls/hr EVERY 12 HOURS IV 12/23/16 09:00 01/22/17 08:59 12/23/16 08:32 GUS CUMMINGS Dec 23, 2016 11:43
--- NOTE | 2016-12-23 15:08 | Diagnostic Imaging Report ---
Indication: Altered mental status. Meningitis Technique: The head was imaged in a 1.5 Selena magnet. Sequences obtained include sagittal and axial T1 FLAIR, axial T2 fast spin echo with fat saturation, axial T2 FLAIR, diffusion and ADC map. Gadolinium-enhanced axial and coronal T1 FLAIR obtained also. Comparison: Noncontrast CT head December 20, 2016 Findings: There is moderate prominence of the sulci, ventricles, and basal cisterns consistent with atrophy. Fairly extensive, nonspecific T2 hyperintensity noted within white matter. This is probably on the basis of chronic small vessel disease. No abnormal enhancement is identified. There is no restricted diffusion. Reilly-white differentiation is normal. There is no mass effect, midline shift, edema, or hemorrhage. There are no abnormal extra-axial or intra-axial fluid collections. There are multiple cystic foci within the brainstem, vicente radiata, thalami and basal ganglia bilaterally consistent with old small vessel infarcts. The corpus callosum and sella are unremarkable. The brainstem and cerebellum are unremarkable. Bone marrow signal within the visualized osseous structures appears age appropriate and unremarkable otherwise. Impression: No acute intracranial findings. Multiple old small vessel infarct. Age-related findings including moderate atrophy and evidence of chronic small vessel disease involving white matter tracts.
[2016-12-23] MEDS ORDERED: NS 1000ml 1,600 ML IVLG ONE (15:30)
--- NOTE | 2016-12-23 15:32 | Infectious Diseases Prog Note ---
Assessment/Plan Assessment/Plan ASSESSMENT 66 y/o cachectic AAM with contractures, admitted with fever, altered sensorium, and leukocytosis with left shift w/o rash, w/o hemodynamic instability, w/o cytopenias, w/o hepatitis. Leading diagnosis is probable viral encephalitis, much less likely bacterial process, or also likely is toxic encephalopathy secondary to systemic process. He carries a diagnosis of dementia, but wonder if he might have some component of parkinsonisms as his underlying disease. No evidence of immunocompromise. 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 Urine cx from admission ngtd, but this was obtained after he received one dose of vanc and unasyn in ER 1) Encephalitis vs toxic encephalopathy vs less likely ADEM. most likely infectious (viral) causes include HSV, enterovirus, or WNV. 2) Rule out bacterial meningoencephalitis, less likely. exam not suggestive of meningococcemia. 3) Rule out urosepsis 12/21 ucx ngtd at 24 hrs 4) GPR bacteremia vs contaminant. growing at >48 hrs from aerobic bottle only of 1 of 2 sets obtained on [id number]. r/o Listeria, however since only growing in anaerobic suspect more likely it's a Coryneform contaminant. However, pending identification, am concerned this could be listeria, and although additional beta lactam may lower his seizure threshold, until we can r/o listeria need to add on IV ampicillin, renally dosed. 5) Leukocytosis, resolved. 6) Elevated serum lactate, resolved. 7) Hemodynamically stable, elevated BP. 8) History of ischemic cerebrovascular accident and possible parkinsonism. 9) HIV screen negative 10) DUSTY, probably prerenal, r/o ACV induced crystalluria RECOMMENDATIONS: --Continue empiric therapy with IV ceftriaxone 2gm IV q12hr and IV ACV, D#2 --reduced ACV to 500mg based on updated patient weight around 55k, and increase dosing interval to q12hr in light of DUSTY. --D/C Iv vanc for now, currently on D#2 b/c of increase SCr to 1.5. will be therapeutic o/n, recheck random vanc level in AM, and can consider resuming ( depending on identity of the GPR in blood from 12/20) if SCr improves. --Start Ampicillin 2gm IV q6hr D#0 now --1L ns IV fluid bolus. --surveillance blood culture now. --u/a to r/o ACV induced crystalluria. --f/u Serum RPR to rule out syphilis. --f/u Serum West Nile virus IgM. --Continue Droplet precautions for possible but unlikely bacterial meningitis. Can d/c once he's been on abx for 72 hrs in AM 12/24/16. --pending MRI of the brain with contrast, continue empiric antimicrobials. --Monitor daily CBC. --Monitor temperature curve. Thank you for this consultation. I am covering for Dr. Michele Biggs. For any questions, please do not hesitate to contact me directly at phone number . Subjective ROS Limited/Unobtainable: Yes Allergies: Coded Allergies: ATORVASTATIN (Verified Allergy, Unknown, 12/20/16) Subjective mental status unchanged from yesterday. exhibiting R shoulder now L shoulder partial seizures. IV ACV started at approximately 19:00 on [id number]. Objective Vital Signs Last 24 Hour Vital Signs Date Time Temp Pulse Resp B/P (MAP) Pulse Ox O2 Delivery O2 Flow Rate FiO2 12/23/16 12:00 74 12/23/16 11:23 97.7 75 20 147/86 98 Nasal Cannula 1.0 12/23/16 08:31 89 138/70 12/23/16 08:31 89 138/70 12/23/16 08:00 105 12/23/16 07:55 97.2 89 20 138/70 96 Nasal Cannula 1.0 12/23/16 07:31 Nasal Cannula 2.0 28 12/23/16 07:30 97 Nasal Cannula 2.0 12/23/16 04:00 2.0 12/23/16 04:00 73 12/23/16 03:56 98.2 84 20 140/78 98 Nasal Cannula 2.0 12/23/16 00:00 83 12/23/16 00:00 2.0 12/23/16 00:00 97.9 89 20 126/71 98 Nasal Cannula 2.0 12/22/16 22:02 97 Nasal Cannula 2.0 12/22/16 22:02 Nasal Cannula 2.0 28 9/4/17 21:15 114 146/91 12/22/16 20:00 101 12/22/16 20:00 98.4 101 20 141/87 97 Nasal Cannula 2.0 12/22/16 16:00 98.1 109 20 147/90 97 Nasal Cannula 2.0 12/22/16 16:00 2.0 12/22/16 15:39 95 Height (Feet): 5 Height (Inches): 6.00 Weight (Pounds): 120 Objective GENERAL: Eyes are open, but not particularly responsive. He does withdraw to pain and is not in extremis. HEENT: He has no oral lesions. Oral mucosa is dry. Conjunctiva is pale and pink without conjunctival injection. Spontaneous extraocular muscles are intact, but he does have a kind of static rightward gaze at baseline and he is favoring his head looking in the rightward direction. His head is normocephalic, atraumatic without any skin lesions. NECK: Supple without any nuchal rigidity or meningismus. He has no carotid bruits. CARDIOVASCULAR: Borderline tachycardic. No murmur appreciated. No rubs or gallops. His PMI is not displaced laterally. LUNGS: Clear to auscultation bilaterally. ABDOMEN: No hepatosplenomegaly. No tenderness to palpation. No rebound or guarding. His abdomen is flat and soft. EXTREMITIES: Somewhat cachectic, thin, tall man. He has no lower extremity edema. He has thick dystrophic nails. Pulses are intact distally. He has no cyanosis or mottling. His extremities are warm to touch. He does have a few scattered superficial abrasions to his right santa but he has no petechiae, no purpura, and no ecchymoses of any kind. GENITOURINARY: He has no scrotal edema. No erythema. No focal mass or fluctuance appreciated. He is uncircumcised without any lesions or drainage from the penis. condom urinary catheter in place draining yellow urine. RECTAL: No perirectal lesions appreciated. He has normal rectal tone. NEUROLOGIC: He is quite contracted. He does withdraw to pain. He does have subtle cogwheel rigidity in his right greater than left upper extremity. His deep tendon reflexes are 2+, equal and symmetric throughout. He does move all four extremities spontaneously and he has no focal tenderness to palpation. L shoulder partial intermittent seizures. Microbiology Date/Time Source Procedure Growth Status 12/20/16 23:00 Blood Blood Culture - Preliminary NO GROWTH AFTER 48 HOURS Resulted 12/20/16 22:55 Blood Blood Culture - Preliminary Resulted 12/21/16 00:55 Nasal Nares MRSA Culture - Final NO METHICILLIN RESISTANT STAPH AUREUS... Complete 12/21/16 01:40 Urine,Clean Catch Urine Culture - Preliminary NO GROWTH AFTER 24 HOURS Resulted 12/21/16 00:55 Rectum VRE Culture - Final NO VANCOMYCIN RESISTANT ENTEROCOCCUS ... Complete Laboratory Tests Test 12/23/16 09:10 White Blood Count 9.4 K/UL (4.8-10.8) Red Blood Count 3.59 M/UL (4.70-6.10) L Hemoglobin 9.8 G/DL (14.2-18.0) L Hematocrit 30.8 % (42.0-52.0) L Mean Corpuscular Volume 86 FL (80-99) Mean Corpuscular Hemoglobin 27.2 PG (27.0-31.0) Mean Corpuscular Hemoglobin Concent 31.8 G/DL (32.0-36.0) L Red Cell Distribution Width 15.1 % (11.6-14.8) H Platelet Count 407 K/UL (150-450) Mean Platelet Volume 5.2 FL (6.5-10.1) L Neutrophils (%) (Auto) 75.3 % (45.0-75.0) H Lymphocytes (%) (Auto) 9.0 % (20.0-45.0) L Monocytes (%) (Auto) 9.8 % (1.0-10.0) Eosinophils (%) (Auto) 5.2 % (0.0-3.0) H Basophils (%) (Auto) 0.7 % (0.0-2.0) Sodium Level 135 mEQ/L (135-145) Potassium Level 3.5 mEQ/L (3.4-4.9) Chloride Level 97 mEQ/L (98-107) L Carbon Dioxide Level 24 mEQ/L (20-30) Anion Gap 14 (5-15) Blood Urea Nitrogen 11 mg/dL (7-23) Creatinine 1.5 mg/dL (0.7-1.2) #H Estimat Glomerular Filtration Rate 46.5 mL/min (>60) Glucose Level 121 mg/dL (74-106) H Calcium Level 8.5 mg/dL (8.6-10.2) L Troponin I < 0.30 ng/mL (<=0.30) Current Medications Medications (Trade) Dose Ordered Sig/Treasure Route PRN Reason Start Time Stop Time Status Last Admin Dose Admin Acetaminophen (Tylenol) 650 mg Q6H PRN GT Mild Pain/Temp > 100.5 12/21/16 20:00 01/20/17 06:44 Acyclovir 500 mg/ Sodium Chloride 110 ml @ 110 mls/hr Q12HR@0600,1800 IV 12/23/16 18:00 01/22/17 17:59 UNV Amlodipine Besylate (Norvasc) 5 mg DAILY GT 12/22/16 09:00 01/20/17 08:59 12/23/16 08:31 Ceftriaxone Sodium 2 gm/ Dextrose 110 ml @ 220 mls/hr Q12HR@0800,2000 IVPB 12/21/16 20:00 12/28/16 19:59 12/23/16 08:30 Dextrose/Sodium Chloride 1,000 ml @ 75 mls/hr [id number] IV 12/21/16 13:00 01/20/17 12:59 12/23/16 04:56 Heparin Sodium (Porcine) (Heparin 5000 units/ml) 5,000 units EVERY 12 HOURS SUBQ 12/21/16 09:00 01/20/17 08:59 12/23/16 08:34 Levetiracetam 100 ml @ 400 mls/hr Q12HR IVPB 12/23/16 09:00 01/22/17 08:59 12/23/16 08:30 Lorazepam (Ativan 2mg/ml 1ml) 2 mg Q6H PRN IV For Seizures 12/22/16 20:30 12/29/16 20:29 Metoprolol Tartrate (Lopressor) 50 mg Q12HR NG 12/22/16 21:00 01/21/17 20:59 12/23/16 08:31 Ranitidine HCl (Zantac) 150 mg DAILY GT 12/24/16 09:00 01/21/17 08:59 Valproate Sodium 1000 mg/Dextrose 65 ml @ 32.5 mls/hr EVERY 12 HOURS IV 12/23/16 09:00 01/22/17 08:59 12/23/16 08:32 Uriel Morillo M.D. Dec 23, 2016 15:32
[2016-12-23 15:40] VITALS: BP 143/95
[2016-12-23] MEDS: ACYCLOVIR IV SCH (16:53)
[2016-12-23] MEDS: NS IV SCH (16:53)
[2016-12-23] MEDS: Ampicillin 2 GM in NS 110 ML IVPB SCH (16:54)
[2016-12-23] MEDS ORDERED: Acyclovir 750 MG in NS 110 ML IV SCH (18:00)
[2016-12-23 20:00] VITALS: BP 150/81
[2016-12-23] MEDS ORDERED: LORazepam Inj 2mg/ml 1ml IV ONE (21:35)
--- NOTE | 2016-12-23 21:39 | Neurology Progress Note ---
Interim History Interim History Interim History Mr. Sims is awake but not completely alert. He says he feels "better." He continues to have right shoulder partial motor seizures. He denies any new problems. He is able to follow commands and communicate today. Review of Systems Neuro Review of Systems Unable to obtain. Objective Physical Exam Last Vital Signs Date Time Temp Pulse Resp B/P (MAP) Pulse Ox O2 Delivery O2 Flow Rate FiO2 12/23/16 20:00 97.9 74 18 150/81 97 Nasal Cannula 2.0 12/23/16 19:30 28 Laboratory Tests Test 12/23/16 09:10 White Blood Count 9.4 K/UL (4.8-10.8) Red Blood Count 3.59 M/UL (4.70-6.10) L Hemoglobin 9.8 G/DL (14.2-18.0) L Hematocrit 30.8 % (42.0-52.0) L Mean Corpuscular Volume 86 FL (80-99) Mean Corpuscular Hemoglobin 27.2 PG (27.0-31.0) Mean Corpuscular Hemoglobin Concent 31.8 G/DL (32.0-36.0) L Red Cell Distribution Width 15.1 % (11.6-14.8) H Platelet Count 407 K/UL (150-450) Mean Platelet Volume 5.2 FL (6.5-10.1) L Neutrophils (%) (Auto) 75.3 % (45.0-75.0) H Lymphocytes (%) (Auto) 9.0 % (20.0-45.0) L Monocytes (%) (Auto) 9.8 % (1.0-10.0) Eosinophils (%) (Auto) 5.2 % (0.0-3.0) H Basophils (%) (Auto) 0.7 % (0.0-2.0) Sodium Level 135 mEQ/L (135-145) Potassium Level 3.5 mEQ/L (3.4-4.9) Chloride Level 97 mEQ/L (98-107) L Carbon Dioxide Level 24 mEQ/L (20-30) Anion Gap 14 (5-15) Blood Urea Nitrogen 11 mg/dL (7-23) Creatinine 1.5 mg/dL (0.7-1.2) #H Estimat Glomerular Filtration Rate 46.5 mL/min (>60) Glucose Level 121 mg/dL (74-106) H Calcium Level 8.5 mg/dL (8.6-10.2) L Troponin I < 0.30 ng/mL (<=0.30) Neurologic Exam Objective PHYSICAL EXAMINATION: GENERAL: He is a well-developed, well-nourished, but lean black gentleman, lying in bed, with episodic clonic moments of his left shoulder. HEAD: Normocephalic and atraumatic. EENT: Examination benign. NECK: No neck rigidity was observed. He did, however, have decreased range of motion in all directions. NEUROLOGIC EXAMINATION: MENTAL STATUS EXAMINATION: He was awake but not completely alert. He was oriented to self and hospital only. He was unable to cooperate for mental status tests. SPEECH: He had a moderate dysarthria. LANGUAGE: He had a mild aphasia. CRANIAL NERVE EXAMINATION: II: He was able to count fingers. He could not cooperate for visual field testing. III, IV & : The external ocular movements were present on oculocephalic maneuvers. The pupils were 3 mm in diameter, equal, round, regular, and reactive to light. V & VII: The corneal reflex was significantly diminished on the left side compared to the right. He also had a left greater than right VII central facial paresis. VIII: He was able to hear and had no nystagmus. IX: The palate moved symmetrically on phonation. X: He had no hoarseness of voice. XI: The sternocleidomastoids and trapezii functioned normally. XII: The tongue was in the midline without any fasciculations or atrophy. MOTOR SYSTEM: The tone was increased in all four extremities with spasticity more marked on the left than on the right. Examination of muscle mass revealed contractures of the left hand and the left lower extremity. Examination of power was impossible to perform on individual muscle groups, however, the left upper extremity was plegic, the right upper extremity was paretic, and he had a left greater than right lower extremity paresis. SENSORY EXAMINATION: He responded to deep pain, but the response was more robust on right-sided stimulation than left-sided stimulation. REFLEXES: 0 at the biceps, triceps, brachioradialis, knees, and ankles. The plantar responses were extensor bilaterally. COORDINATION: Could not be tested. STANCE: Could not be tested. GAIT: Could not be tested. ABNORMAL MOVEMENTS: He was having partial clonic seizures of his left shoulder. Impression/Recommendations Diagnostic Impression 1. Mr. Barry Sims is a 66-year-old, right-handed, black gentleman, with a past history of hypertension, multiple strokes involving the left body more than the right, aphasia, and dementia, who was recently moved to a assisted facility. He was noted to have an alteration in his mental state and some tremor-like movements there. As a result of that, he was brought in to the [facility] emergency room where he was diagnosed with sepsis. He was treated with antibiotics and fluids and was better. 2. He continues to have partial clonic seizures of his right shoulder. He is now getting Keppra and Valproate but continues to have partial seizures. 3. On neurological examination, at this time, he is much more alert and responsive. He is oriented to self and hospital. He has a depressed left corneal reflex, left greater than right VII central facial paresis, left upper extremity plegia, right upper extremity paresis, left greater than right lower extremity paresis, absent deep tendon reflexes, and extensor plantar responses bilaterally. He is also having clonic movements of his right shoulder. 4. The CT scan of the brain without contrast reveals multiple old infarcts involving both hemispheres. 5. Laboratory data obtained thus far reveal a WBC count elevated to 18,500, an anemia with a hemoglobin of 11.0, glucose elevated to 142, and lactic acid elevated to 3.2. Normal TSH and normal electrolytes. His urinalysis reveals 2 + leukocyte esterase, 2 red blood cells, and 10 to 15 white blood cells per high -power field. His HIV 1 and 2 antibodies are negative. 6. His EEG revealed a moderate encephalopathy, right brain SPLEDS and then an electrographic seizure which started over the right hemisphere and then generalized and responded to Ativan. 7. The MRI of the brain done on 12/23/16 revealed no acute intracranial findings. Multiple old small vessel infarcts were seen. Age-related findings including moderate atrophy and evidence of chronic small vessel disease involving white matter tracts. 8. 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 In addition he continues to have focal seizures involving his left shoulder. Recommendations 1. Continue present management. 2. Continue Keppra 1 G IV q 12 hours. 3. Continue Depacon 1 G IV now and then q 12 hours. 4. Single dose of Ativan 2 mg IV now. 5. Ativan 2 mg IV q 6 H PRN if seizure generalizes. 6. Aggressive treatment of the patient's infectious process. Becca Mckeon M.D., M.S.P.H. BECCA MCKEON Dec 23, 2016 21:39
[2016-12-24] VITALS (7 sets, daily range): BP systolic 148–168; BP diastolic 84–98
[2016-12-24 04:51] LABS: APPEARANCE,URINE CLEAR; KETONES,URINE NEGATIVE (NEGATIVE); LEUKOCYTE ESTERASE ,URINE 2+ (NEGATIVE); NITRITE,URINE NEGATIVE (NEGATIVE); PH,URINE 6.5 (4.5-8.0); PROTEIN,URINE NEGATIVE (NEGATIVE); UROBILINOGEN,URINE NORMAL MG/DL (0.0-1.0)
[2016-12-24 04:56] LABS: MEAN CORPUSCULAR HEMOGLOBIN 28.1 PG (27.0-31.0); MEAN CORPUSCULAR HGB CONC 32.4 G/DL (32.0-36.0); MEAN CORPUSCULAR VOLUME 87 FL (80-99); MEAN PLATELET VOLUME 5.5 FL (6.5-10.1); PLATELET COUNT 408 K/UL (150-450); RED BLOOD COUNT 3.31 M/UL (4.70-6.10); RED CELL DISTRIBUTION WIDTH 14.8 % (11.6-14.8); WHITE BLOOD COUNT 8.9 K/UL (4.8-10.8)
[2016-12-24] MEDS: NS IV SCH ×2 (05:19→18:13)
[2016-12-24] MEDS: ACYCLOVIR IV SCH ×2 (05:19→18:13)
[2016-12-24] MEDS: Ampicillin 2 GM in NS 110 ML IVPB SCH ×5 (05:24→17:24)
[2016-12-24 05:53] LABS: BACTERIA,URINE FEW /HPF; MUCUS,URINE FEW /LPF (NONE/OCC); RBC,URINE 0-2 /HPF (0 - 0); SQUAMOUS EPITHELIAL CELL,UR FEW /LPF (NONE/OCC)
[2016-12-24 05:53] LABS: LACTATE DEHYDROGENASE 231 U/L (135-230)
[2016-12-24 05:58] LABS: CALCIUM 8.6 mg/dL (8.6-10.2); CREATININE 1.5 mg/dL (0.7-1.2); GLOMERULAR FILTRATION RATE 46.5 mL/min (>60); POTASSIUM 3.5 mEQ/L (3.4-4.9)
[2016-12-24 06:01] LABS: TROPONIN I < 0.30 ng/mL (<=0.30)
[2016-12-24 06:25] LABS: HEMOLYSIS 8; IRON 39 ug/dL (59-158); TOTAL IRON BINDING CAPACITY 229 ug/dL (250-400)
[2016-12-24 06:40] LABS: ERYTHROCYTE SEDIMENTATION RATE 73 MM/HR (0-20)
[2016-12-24] MEDS: cefTRIAXone 2 GM in D5W 110 ML IVPB SCH ×2 (07:59→20:00)
[2016-12-24] MEDS: D5 1/2NS 1,000 ML IV SCH (07:59)
[2016-12-24] MEDS: levETIRAcetam 1,000mg/NS100ml 100 ML IVPB SCH (08:58)
[2016-12-24] MEDS: Valproate Sodium INJ 1,000 MG in D5W 55 ML IV SCH (08:58)
[2016-12-24] MEDS: Metoprolol 25mg tab NG SCH (08:58)
[2016-12-24] MEDS: Heparin 5000 units/ml inj SUBQ SCH (09:00)
[2016-12-24 10:24] LABS: ANISOCYTOSIS 1+; EOSINOPHILS % (MANUAL) 7 % (0-3); LYMPHOCYTES % (MANUAL) 6 % (20-45); NEUTROPHILS % (MANUAL) 84 % (45-75); TOTAL CELLS COUNTED 100
[2016-12-24 10:25] LABS: BAND NEUTROPHILS % (MANUAL) 0 % (0-8); BASOPHILS % (MANUAL) 0 % (0-2); PLATELET ESTIMATE ADEQUATE; PLATELET MORPHOLOGY NORMAL
--- NOTE | 2016-12-24 10:59 | General Progress Note ---
Assessment/Plan Status: stable Assessment/Plan 1. Sepsis, sources including, but not limited to meningitis. 2. Meningoencephalitis-the presumable diagnosis-lumbar puncture cannot be obtained secondary to patient's posture. 3. Cerebrovascular accident-history of. 4. Sz d/o 5. Encephalopathy- Acute on Chronic 4. Anemia. 5. Anxiety/depression. 6. Gastrointestinal and deep vein thrombosis prophylaxis 7. ARF continue with sz treatment. No acute abnormal finding in Brain MRI notes from ID, Neuro are reviewed Discussed the case with MD and piano case maker in [facility]. patient is stable for transfer for today Subjective ROS Limited/Unobtainable: Yes Allergies: Coded Allergies: ATORVASTATIN (Verified Allergy, Unknown, 12/20/16) Objective Last 24 Hour Vital Signs Date Time Temp Pulse Resp B/P (MAP) Pulse Ox O2 Delivery O2 Flow Rate FiO2 12/24/16 10:52 80 155/94 12/24/16 08:58 97 167/93 12/24/16 08:58 97 167/93 12/24/16 08:00 98.1 97 19 167/93 96 Nasal Cannula 3.0 12/24/16 07:51 Nasal Cannula 2.0 28 12/24/16 07:50 97 Nasal Cannula 2.0 28 12/24/16 07:44 85 12/24/16 04:00 98.1 82 20 160/98 99 Nasal Cannula 3.0 12/24/16 00:00 98.1 78 19 154/88 100 Nasal Cannula 3.0 12/23/16 21:00 76 12/23/16 20:00 97.9 74 18 150/81 97 Nasal Cannula 2.0 12/23/16 19:30 97 Nasal Cannula 2.0 28 12/23/16 19:30 Nasal Cannula 2.0 28 12/23/16 17:48 74 12/23/16 15:40 97.3 87 20 143/95 98 Nasal Cannula 3.0 12/23/16 12:00 74 12/23/16 11:23 97.7 75 20 147/86 98 Nasal Cannula 1.0 Laboratory Tests 12/24/16 04:00: Urine Color Pale yellow, Urine Appearance Clear, Urine pH 6.5, Urine Specific [place] 1.010, Urine Protein Negative, Urine Glucose (UA) Negative, Urine Ketones Negative, Urine Occult Blood Negative, Urine Nitrite Negative, Urine Bilirubin Negative, Urine Urobilinogen Normal, Urine Leukocyte Esterase 2+H, Urine RBC 0-2H, Urine WBC 5-10H, Urine Squamous Epithelial Cells Few, Urine Bacteria Few, Urine Mucus FewH 12/24/16 04:10: White Blood Count 8.9, Red Blood Count 3.31L, Hemoglobin 9.3L, Hematocrit 28.7L , Mean Corpuscular Volume 87, Mean Corpuscular Hemoglobin 28.1, Mean Corpuscular Hemoglobin Concent 32.4, Red Cell Distribution Width 14.8, Platelet Count 408, Mean Platelet Volume 5.5L, Neutrophils (%) (Auto) , Lymphocytes (%) ( Auto) , Monocytes (%) (Auto) , Eosinophils (%) (Auto) , Basophils (%) (Auto) , Differential Total Cells Counted 100, Neutrophils % (Manual) 84H, Lymphocytes % (Manual) 6L, Monocytes % (Manual) 3, Eosinophils % (Manual) 7H, Basophils % ( Manual) 0, Band Neutrophils 0, Platelet Estimate Adequate, Platelet Morphology Normal, Anisocytosis 1+, Erythrocyte Sedimentation Rate 73H, Reticulocyte Count [Pending], Prothrombin Time 10.0, Prothromb Time International Ratio 1.0, Activated Partial Thromboplast Time 32, Sodium Level 137, Potassium Level 3.5, Chloride Level 101, Carbon Dioxide Level 23, Anion Gap 13, Blood Urea Nitrogen 11, Creatinine 1.5H, Estimat Glomerular Filtration Rate 46.5, Glucose Level 95, Calcium Level 8.6, Iron Level 39L, Total Iron Binding Capacity 229L, Percent Iron Saturation 17, Unsaturated Iron Binding 190, Lactate Dehydrogenase 231H, Troponin I < 0.30, Carcinoembryonic Antigen 2.4, Vitamin B12 Level 207L, Folate [Pending], Random Vancomycin Level 18.3 Height (Feet): 5 Height (Inches): 6.00 Weight (Pounds): 120 General Appearance: no apparent distress, other EENT: other - limited eval secondary to non following commands Neck: supple Cardiovascular: normal rate Respiratory/Chest: lungs clear Abdomen: soft Extremities: other - limietd eval. cachectic muscles . ridgiditiy of all joints Neurologic: disoriented, other - awake , limited response in limited words Gerard Kelley MD Dec 24, 2016 10:59
[2016-12-24 11:01] LABS: PATH BLOOD SMEAR/OMC SENT TO PATHOLOGIST
[2016-12-24 11:17] LABS: RETICULOCYTE COUNT 0.6 % (0.0-2.0)
--- NOTE | 2016-12-24 11:58 | General Progress Note ---
Assessment/Plan Status: deteriorating Assessment/Plan the pt is lethargic however not agitated. the Subjective Allergies: Coded Allergies: ATORVASTATIN (Verified Allergy, Unknown, 12/20/16) Subjective the pt is lethargic and unable to provide hx. no agitation. Objective Last 24 Hour Vital Signs Date Time Temp Pulse Resp B/P (MAP) Pulse Ox O2 Delivery O2 Flow Rate FiO2 12/24/16 10:52 80 155/94 12/24/16 08:58 97 167/93 12/24/16 08:58 97 167/93 12/24/16 08:00 98.1 97 19 167/93 96 Nasal Cannula 3.0 12/24/16 07:51 Nasal Cannula 2.0 28 12/24/16 07:50 97 Nasal Cannula 2.0 28 12/24/16 07:44 85 12/24/16 04:00 98.1 82 20 160/98 99 Nasal Cannula 3.0 12/24/16 00:00 98.1 78 19 154/88 100 Nasal Cannula 3.0 12/23/16 21:00 76 12/23/16 20:00 97.9 74 18 150/81 97 Nasal Cannula 2.0 12/23/16 19:30 97 Nasal Cannula 2.0 28 12/23/16 19:30 Nasal Cannula 2.0 28 12/23/16 17:48 74 12/23/16 15:40 97.3 87 20 143/95 98 Nasal Cannula 3.0 12/23/16 12:00 74 Laboratory Tests 12/24/16 04:00: Urine Color Pale yellow, Urine Appearance Clear, Urine pH 6.5, Urine Specific [place] 1.010, Urine Protein Negative, Urine Glucose (UA) Negative, Urine Ketones Negative, Urine Occult Blood Negative, Urine Nitrite Negative, Urine Bilirubin Negative, Urine Urobilinogen Normal, Urine Leukocyte Esterase 2+H, Urine RBC 0-2H, Urine WBC 5-10H, Urine Squamous Epithelial Cells Few, Urine Bacteria Few, Urine Mucus FewH 12/24/16 04:10: White Blood Count 8.9, Red Blood Count 3.31L, Hemoglobin 9.3L, Hematocrit 28.7L , Mean Corpuscular Volume 87, Mean Corpuscular Hemoglobin 28.1, Mean Corpuscular Hemoglobin Concent 32.4, Red Cell Distribution Width 14.8, Platelet Count 408, Mean Platelet Volume 5.5L, Neutrophils (%) (Auto) , Lymphocytes (%) ( Auto) , Monocytes (%) (Auto) , Eosinophils (%) (Auto) , Basophils (%) (Auto) , Differential Total Cells Counted 100, Neutrophils % (Manual) 84H, Lymphocytes % (Manual) 6L, Monocytes % (Manual) 3, Eosinophils % (Manual) 7H, Basophils % ( Manual) 0, Band Neutrophils 0, Platelet Estimate Adequate, Platelet Morphology Normal, Anisocytosis 1+, Erythrocyte Sedimentation Rate 73H, Reticulocyte Count 0.6, Prothrombin Time 10.0, Prothromb Time International Ratio 1.0, Activated Partial Thromboplast Time 32, Sodium Level 137, Potassium Level 3.5, Chloride Level 101, Carbon Dioxide Level 23, Anion Gap 13, Blood Urea Nitrogen 11, Creatinine 1.5H, Estimat Glomerular Filtration Rate 46.5, Glucose Level 95, Calcium Level 8.6, Iron Level 39L, Total Iron Binding Capacity 229L, Percent Iron Saturation 17, Unsaturated Iron Binding 190, Lactate Dehydrogenase 231H, Troponin I < 0.30, Carcinoembryonic Antigen 2.4, Vitamin B12 Level 207L, Folate [Pending], Random Vancomycin Level 18.3 Height (Feet): 5 Height (Inches): 6.00 Weight (Pounds): 120 General Appearance: no apparent distress, lethargic, confused, thin Neurologic: disoriented, unresponsive Cinthia Patel M.D. Dec 24, 2016 11:58
--- NOTE | 2016-12-24 12:38 | Pulmonology Progress Note ---
Assessment/Plan Problems: (1) Encephalitis (2) Sepsis (3) Altered level of consciousness (4) COPD (chronic obstructive pulmonary disease) (5) History of CVA (cerebrovascular accident) Assessment/Plan continue isolatin stable for transfer to [place]. afebrile, anemia w/u all cultures negative sofar improving check cbc, bmp in am all meds and notes reviewed. Subjective Constitutional: Reports: no symptoms HEENT: Repors: no symptoms Allergies: Coded Allergies: ATORVASTATIN (Verified Allergy, Unknown, 12/20/16) Objective Last 24 Hour Vital Signs Date Time Temp Pulse Resp B/P (MAP) Pulse Ox O2 Delivery O2 Flow Rate FiO2 12/24/16 10:52 80 155/94 12/24/16 08:58 97 167/93 12/24/16 08:58 97 167/93 12/24/16 08:00 98.1 97 19 167/93 96 Nasal Cannula 3.0 12/24/16 07:51 Nasal Cannula 2.0 28 12/24/16 07:50 97 Nasal Cannula 2.0 28 12/24/16 07:44 85 12/24/16 04:00 98.1 82 20 160/98 99 Nasal Cannula 3.0 12/24/16 00:00 98.1 78 19 154/88 100 Nasal Cannula 3.0 12/23/16 21:00 76 12/23/16 20:00 97.9 74 18 150/81 97 Nasal Cannula 2.0 12/23/16 19:30 97 Nasal Cannula 2.0 28 12/23/16 19:30 Nasal Cannula 2.0 28 12/23/16 17:48 74 12/23/16 15:40 97.3 87 20 143/95 98 Nasal Cannula 3.0 General Appearance: WD/WN HEENT: normocephalic, atraumatic Respiratory/Chest: chest wall non-tender, normal breath sounds Cardiovascular: normal peripheral pulses, normal rate Abdomen: normal bowel sounds, soft, non tender Genitourinary: normal external genitalia Extremities: no cyanosis, no clubbing Skin: no rash Laboratory Tests 12/24/16 04:00: Urine Color Pale yellow, Urine Appearance Clear, Urine pH 6.5, Urine Specific [place] 1.010, Urine Protein Negative, Urine Glucose (UA) Negative, Urine Ketones Negative, Urine Occult Blood Negative, Urine Nitrite Negative, Urine Bilirubin Negative, Urine Urobilinogen Normal, Urine Leukocyte Esterase 2+H, Urine RBC 0-2H, Urine WBC 5-10H, Urine Squamous Epithelial Cells Few, Urine Bacteria Few, Urine Mucus FewH 12/24/16 04:10: White Blood Count 8.9, Red Blood Count 3.31L, Hemoglobin 9.3L, Hematocrit 28.7L , Mean Corpuscular Volume 87, Mean Corpuscular Hemoglobin 28.1, Mean Corpuscular Hemoglobin Concent 32.4, Red Cell Distribution Width 14.8, Platelet Count 408, Mean Platelet Volume 5.5L, Neutrophils (%) (Auto) , Lymphocytes (%) ( Auto) , Monocytes (%) (Auto) , Eosinophils (%) (Auto) , Basophils (%) (Auto) , Differential Total Cells Counted 100, Neutrophils % (Manual) 84H, Lymphocytes % (Manual) 6L, Monocytes % (Manual) 3, Eosinophils % (Manual) 7H, Basophils % ( Manual) 0, Band Neutrophils 0, Platelet Estimate Adequate, Platelet Morphology Normal, Anisocytosis 1+, Erythrocyte Sedimentation Rate 73H, Reticulocyte Count 0.6, Prothrombin Time 10.0, Prothromb Time International Ratio 1.0, Activated Partial Thromboplast Time 32, Sodium Level 137, Potassium Level 3.5, Chloride Level 101, Carbon Dioxide Level 23, Anion Gap 13, Blood Urea Nitrogen 11, Creatinine 1.5H, Estimat Glomerular Filtration Rate 46.5, Glucose Level 95, Calcium Level 8.6, Iron Level 39L, Total Iron Binding Capacity 229L, Percent Iron Saturation 17, Unsaturated Iron Binding 190, Lactate Dehydrogenase 231H, Troponin I < 0.30, Carcinoembryonic Antigen 2.4, Vitamin B12 Level 207L, Folate [Pending], Random Vancomycin Level 18.3 Current Medications Medications (Trade) Dose Ordered Sig/Treasure Route PRN Reason Start Time Stop Time Status Last Admin Dose Admin Acetaminophen (Tylenol) 650 mg Q6H PRN GT Mild Pain/Temp > 100.5 12/21/16 20:00 01/20/17 06:44 Acyclovir 500 mg/ Sodium Chloride 110 ml @ 110 mls/hr Q12HR@0600,1800 IV 12/23/16 18:00 01/22/17 17:59 12/24/16 05:19 Amlodipine Besylate (Norvasc) 5 mg DAILY GT 12/22/16 09:00 01/20/17 08:59 12/24/16 08:58 Ampicillin 2 gm/ Sodium Chloride 110 ml @ 220 mls/hr EVERY 6 HOURS IVPB 12/23/16 17:00 12/28/16 16:59 12/24/16 11:33 Ceftriaxone Sodium 2 gm/ Dextrose 110 ml @ 220 mls/hr Q12HR@0800,2000 IVPB 12/21/16 20:00 12/28/16 19:59 12/24/16 07:59 Dextrose/Sodium Chloride 1,000 ml @ 75 mls/hr [id number] IV 12/21/16 13:00 01/20/17 12:59 12/24/16 07:59 Heparin Sodium (Porcine) (Heparin 5000 units/ml) 5,000 units EVERY 12 HOURS SUBQ 12/21/16 09:00 01/20/17 08:59 12/24/16 09:00 Levetiracetam 100 ml @ 400 mls/hr Q12HR IVPB 12/23/16 09:00 01/22/17 08:59 12/24/16 08:58 Lorazepam (Ativan 2mg/ml 1ml) 2 mg Q6H PRN IV For Seizures 12/22/16 20:30 12/29/16 20:29 Metoprolol Tartrate (Lopressor) 50 mg Q12HR NG 12/22/16 21:00 01/21/17 20:59 12/24/16 08:58 Ranitidine HCl (Zantac) 150 mg DAILY GT 12/24/16 09:00 01/21/17 08:59 12/24/16 08:58 Valproate Sodium 1000 mg/Dextrose 65 ml @ 32.5 mls/hr EVERY 12 HOURS IV 12/23/16 09:00 01/22/17 08:59 12/24/16 08:58 GUS CUMMINGS Dec 24, 2016 12:38
--- NOTE | 2016-12-24 15:36 | Cardiology Report ---
APPROVED REPORT EXAM: Two-dimensional and M-mode echocardiogram with Doppler and color Doppler. INDICATION Tachycardia M-Mode DIMENSIONS IVSd1.1 (0.7-1.1cm)Left Atrium (MM)3.4 (1.6-4.0cm) LVDd3.2 (3.5-5.6cm)Aortic Root3.1 (2.0-3.7cm) PWd1.8 (0.7-1.1cm)Aortic Cusp Exc.1.7 (1.5-2.0cm) LVDs2.1 (2.5-4.0cm) PWs2.3 cm Technically difficult study due to poor acoustic windows. Study quality precludes accurate assessment of regional wall motion. Normal left ventricular chamber size, systolic function and wall motion. Left ventricular ejection fraction estimated to be 60 %. Borderline left ventricular hypertrophy. No evidence of pericardial fat or effusion. All other cardiac chamber sizes are within normal limits. Mild focal aortic valve sclerosis with adequate cusp excursion. Mildy thickened mitral valve leaflets with normal excursion. Mild mitral annulus and aortic root calcification. Pulmonic valve not visualized. Normal tricuspid valve structure. Subcostal views not obtainable. A color flow and spectral Doppler study was performed and revealed: No aortic regurgitation. Trace mitral regurgitation. Left ventricular diastolic function could not be obtained due to A-fib. Trace tricuspid regurgitation. Tricuspid systolic velocities suggests peak right ventricular systolic pressure of 10 mmHg. No pulmonic regurgitation present.
--- NOTE | 2016-12-24 16:54 | Cardiology Report ---
APPROVED REPORT EKG Measurement Heart [id number] Sinus tachycardia with occasional premature ventricular complexes Nonspecific ST and T wave abnormality Abnormal ECG
--- NOTE | 2016-12-24 18:58 | Neurology Progress Note ---
Interim History Interim History Interim History Mr. Sims is drowsy today. He can be aroused but is not completely alert. He says he feels "better." He continues to have left shoulder partial motor seizures intermittently. He denies any new problems. He is able to follow commands but not perfectly. Review of Systems Neuro Review of Systems Unable to obtain. Objective Physical Exam Last Vital Signs Date Time Temp Pulse Resp B/P (MAP) Pulse Ox O2 Delivery O2 Flow Rate FiO2 12/24/16 16:00 97.9 91 22 158/84 99 Simple Mask 3.0 12/24/16 07:51 28 Laboratory Tests Test 12/24/16 04:00 12/24/16 04:10 Urine Color Pale yellow Urine Appearance Clear Urine pH 6.5 (4.5-8.0) Urine Specific [place] 1.010 (1.005-1.035) Urine Protein Negative (NEGATIVE) Urine Glucose (UA) Negative (NEGATIVE) Urine Ketones Negative (NEGATIVE) Urine Occult Blood Negative (NEGATIVE) Urine Nitrite Negative (NEGATIVE) Urine Bilirubin Negative (NEGATIVE) Urine Urobilinogen Normal MG/DL (0.0-1.0) Urine Leukocyte Esterase 2+ (NEGATIVE) H Urine RBC 0-2 /HPF (0 - 0) H Urine WBC 5-10 /HPF (0 - 0) H Urine Squamous Epithelial Cells Few /LPF (NONE/OCC) Urine Bacteria Few /HPF (NONE) Urine Mucus Few /LPF (NONE/OCC) H White Blood Count 8.9 K/UL (4.8-10.8) Red Blood Count 3.31 M/UL (4.70-6.10) L Hemoglobin 9.3 G/DL (14.2-18.0) L Hematocrit 28.7 % (42.0-52.0) L Mean Corpuscular Volume 87 FL (80-99) Mean Corpuscular Hemoglobin 28.1 PG (27.0-31.0) Mean Corpuscular Hemoglobin Concent 32.4 G/DL (32.0-36.0) Red Cell Distribution Width 14.8 % (11.6-14.8) Platelet Count 408 K/UL (150-450) Mean Platelet Volume 5.5 FL (6.5-10.1) L Neutrophils (%) (Auto) % (45.0-75.0) Lymphocytes (%) (Auto) % (20.0-45.0) Monocytes (%) (Auto) % (1.0-10.0) Eosinophils (%) (Auto) % (0.0-3.0) Basophils (%) (Auto) % (0.0-2.0) Differential Total Cells Counted 100 Neutrophils % (Manual) 84 % (45-75) H Lymphocytes % (Manual) 6 % (20-45) L Monocytes % (Manual) 3 % (1-10) Eosinophils % (Manual) 7 % (0-3) H Basophils % (Manual) 0 % (0-2) Band Neutrophils 0 % (0-8) Platelet Estimate Adequate Platelet Morphology Normal Anisocytosis 1+ Erythrocyte Sedimentation Rate 73 MM/HR (0-20) H Reticulocyte Count 0.6 % (0.0-2.0) Prothrombin Time 10.0 SEC (9.30-11.50) Prothromb Time International Ratio 1.0 (0.9-1.1) Activated Partial Thromboplast Time 32 SEC (23-33) Sodium Level 137 mEQ/L (135-145) Potassium Level 3.5 mEQ/L (3.4-4.9) Chloride Level 101 mEQ/L (98-107) Carbon Dioxide Level 23 mEQ/L (20-30) Anion Gap 13 (5-15) Blood Urea Nitrogen 11 mg/dL (7-23) Creatinine 1.5 mg/dL (0.7-1.2) H Estimat Glomerular Filtration Rate 46.5 mL/min (>60) Glucose Level 95 mg/dL (74-106) Calcium Level 8.6 mg/dL (8.6-10.2) Iron Level 39 ug/dL (59-158) L Total Iron Binding Capacity 229 ug/dL (250-400) L Percent Iron Saturation 17 % (15-50) Unsaturated Iron Binding 190 ug/dL (112-346) Lactate Dehydrogenase 231 U/L (135-230) H Troponin I < 0.30 ng/mL (<=0.30) Carcinoembryonic Antigen 2.4 ng/mL Vitamin B12 Level 207 pg/mL (211-946) L Folate Pending Random Vancomycin Level 18.3 ug/mL Neurologic Exam Objective PHYSICAL EXAMINATION: GENERAL: He is a well-developed, well-nourished, but lean black gentleman, lying in bed, with episodic clonic moments of his left shoulder. HEAD: Normocephalic and atraumatic. EENT: Examination benign. NECK: No neck rigidity was observed. He did, however, have decreased range of motion in all directions. NEUROLOGIC EXAMINATION: MENTAL STATUS EXAMINATION: He was drowsy but could be aroused. When aroused he was not completely alert. He was oriented to self only. He was unable to cooperate for mental status tests. SPEECH: He had a moderate dysarthria. LANGUAGE: Could not be tested adequately. CRANIAL NERVE EXAMINATION: II: He did blink to threat but would not count fingers. III, IV & : The external ocular movements were present on oculocephalic maneuvers. The pupils were 3 mm in diameter, equal, round, regular, and reactive to light. V & VII: The corneal reflex was significantly diminished on the left side compared to the right. He also had a left greater than right VII central facial paresis. VIII: He was able to hear and had no nystagmus. IX: The palate moved symmetrically on phonation. X: He had no hoarseness of voice. XI: The sternocleidomastoids and trapezii functioned normally. XII: The tongue was in the midline without any fasciculations or atrophy. MOTOR SYSTEM: The tone was increased in all four extremities with spasticity more marked on the left than on the right. Examination of muscle mass revealed contractures of the left hand and the left lower extremity. Examination of power was impossible to perform on individual muscle groups, however, the left upper extremity was plegic, the right upper extremity was paretic, and he had a left greater than right lower extremity paresis. SENSORY EXAMINATION: He responded to deep pain, but the response was more robust on right-sided stimulation than left-sided stimulation. REFLEXES: 0 at the biceps, triceps, brachioradialis, knees, and ankles. The plantar responses were extensor bilaterally. COORDINATION: Could not be tested. STANCE: Could not be tested. GAIT: Could not be tested. ABNORMAL MOVEMENTS: He was having partial clonic seizures of his left shoulder intermittently. Impression/Recommendations Diagnostic Impression 1. Mr. Barry Sims is a 66-year-old, right-handed, black gentleman, with a past history of hypertension, multiple strokes involving the left body more than the right, aphasia, and dementia, who was recently moved to a [place] [facility] facility. He was noted to have an alteration in his mental state and some tremor-like movements there. As a result of that, he was brought in to the [facility] emergency room where he was diagnosed with sepsis. He was treated with antibiotics and fluids and was better. 2. He continues to have partial clonic seizures of his right shoulder. He is now getting Keppra and Valproate but continues to have partial seizures - they are less intense.. 3. On neurological examination, at this time, he is much drowsy but can be aroused. He continues to be responsive. He is oriented to self only. He has a depressed left corneal reflex, left greater than right VII central facial paresis, left upper extremity plegia, right upper extremity paresis, left greater than right lower extremity paresis, absent deep tendon reflexes, and extensor plantar responses bilaterally. He is also having clonic movements of his left shoulder intermittently. 4. The CT scan of the brain without contrast reveals multiple old infarcts involving both hemispheres. 5. Laboratory data obtained thus far reveal a WBC count elevated to 18,500, an anemia with a hemoglobin of 11.0, glucose elevated to 142, and lactic acid elevated to 3.2. Normal TSH and normal electrolytes. His urinalysis reveals 2 + leukocyte esterase, 2 red blood cells, and 10 to 15 white blood cells per high -power field. His HIV 1 and 2 antibodies are negative. He is Vitamin B 12 deficient. 6. His EEG revealed a moderate encephalopathy, right brain SPLEDS and then an electrographic seizure which started over the right hemisphere and then generalized and responded to Ativan. 7. The MRI of the brain done on 12/23/16 revealed no acute intracranial findings. Multiple old small vessel infarcts were seen. Age-related findings including moderate atrophy and evidence of chronic small vessel disease involving white matter tracts. 8. 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 In addition he continues to have focal seizures involving his left shoulder. Recommendations 1. Continue present management. 2. Continue Keppra 1 G IV q 12 hours. 3. Continue Depacon 1 G IV now and then q 12 hours. 4. Check VA level. 5. Ativan 2 mg IV q 6 H PRN if seizure generalizes. 6. Aggressive treatment of the patient's infectious process. 7. Vitamin B12 - 1000 mcg SC daily x 3 days and then monthly. Becca Mckeon M.D., [place]. BECCA MCKEON Dec 24, 2016 18:58
[2016-12-24] MEDS ORDERED: Vitamin B12 1000mcg/ml Inj SUBQ SCH (19:00)
--- NOTE | 2016-12-24 19:13 | Infectious Diseases Prog Note ---
Assessment/Plan Assessment/Plan ASSESSMENT 66 y/o cachectic AAM with contractures, admitted with fever, altered sensorium, and leukocytosis with left shift w/o rash, w/o hemodynamic instability, w/o cytopenias, w/o hepatitis. Leading diagnosis is probable viral encephalitis, much less likely bacterial process, or also likely is toxic encephalopathy secondary to systemic process. He carries a diagnosis of dementia, but wonder if he might have some component of parkinsonisms as his underlying disease. MRI brain demonstrates pretty significant prior ischemic changes. No evidence of immunocompromise. now with EEG performed demonstrating seizure activity that could be consistent with HSV encephaliltis vs toxic encephalopathy. Urine cx from admission ngtd, but this was obtained after he received one dose of vanc and unasyn in ER. 1) Encephalitis vs toxic encephalopathy vs less likely ADEM. most likely infectious (viral) causes include HSV, enterovirus, or WNV. HIV negative, serum RPR neg. 2) Rule out bacterial meningoencephalitis, less likely. exam not suggestive of meningococcemia. 3) Ruled out urosepsis 12/21 ucx negatvie 4) GPR contaminant. confirmed this is NOT listeriosis from blood. 5) Leukocytosis, resolved. 6) Elevated serum lactate, resolved. 7) Hemodynamically stable, elevated BP. 8) History of ischemic cerebrovascular accident and possible parkinsonism. 9) HIV screen negative 10) DUSTY, with isosthenuria, negative crystals, concerning for ATN secondary to vancomycin. did not improve with 1L IV fluid bolus o/n. RECOMMENDATIONS: --Continue empiric therapy with IV ceftriaxone 2gm IV q12hr and IV ACV, D#3 (12/23 IV vanc D#2) --reduced ACV to 500mg based on updated patient weight around 55k, and increase dosing interval to q12hr in light of DUSTY. --Daptomycin 10mg/kg IV q24hr. will increase dosing interval to q48hr if GFR< 30. --baseline CK now --Continue Ampicillin 2gm IV q6hr (renally dosed) D#1, will consider d/c in the next 1-2 days if continues to be w/o improvement --1L ns IV fluid bolus. --f/u surveillance blood culture --f/u Serum West Nile virus IgM. --D/c droplet precautions now --Monitor daily CBC. --Monitor temperature curve --s/p neuro consult for partial seizures Thank you for this consultation. I am covering for Dr. Michele Biggs. Subjective ROS Limited/Unobtainable: Yes Allergies: Coded Allergies: ATORVASTATIN (Verified Allergy, Unknown, 12/20/16) Subjective mental status perhaps slightly improved from yesterday. still with intermittent partial seizures. IV ACV started at approximately 19:00 on [id number]. Objective Vital Signs Last 24 Hour Vital Signs Date Time Temp Pulse Resp B/P (MAP) Pulse Ox O2 Delivery O2 Flow Rate FiO2 12/24/16 16:00 97.9 91 22 158/84 99 Simple Mask 3.0 12/24/16 15:44 83 12/24/16 12:00 98.2 84 20 148/95 97 Nasal Cannula 3.0 12/24/16 11:42 80 12/24/16 10:52 80 155/94 12/24/16 08:58 97 167/93 12/24/16 08:58 97 167/93 12/24/16 08:00 98.1 97 19 167/93 96 Nasal Cannula 3.0 12/24/16 07:51 Nasal Cannula 2.0 28 12/24/16 07:50 97 Nasal Cannula 2.0 28 12/24/16 07:44 85 12/24/16 04:00 98.1 82 20 160/98 99 Nasal Cannula 3.0 12/24/16 00:00 98.1 78 19 154/88 100 Nasal Cannula 3.0 12/23/16 21:00 76 12/23/16 20:00 97.9 74 18 150/81 97 Nasal Cannula 2.0 12/23/16 19:30 97 Nasal Cannula 2.0 28 12/23/16 19:30 Nasal Cannula 2.0 28 Height (Feet): 5 Height (Inches): 6.00 Weight (Pounds): 120 Objective GENERAL: Eyes are open, but not particularly responsive. partial serizures HEENT: He has no oral lesions. Oral mucosa is dry. Conjunctiva is pale and pink without conjunctival injection. Spontaneous extraocular muscles are intact, but he does have a kind of static rightward gaze at baseline and he is favoring his head looking in the rightward direction. His head is normocephalic, atraumatic without any skin lesions. NECK: Supple without any nuchal rigidity or meningismus. He has no carotid bruits. CARDIOVASCULAR: Borderline tachycardic. No murmur appreciated. No rubs or gallops. His PMI is not displaced laterally. LUNGS: Clear to auscultation bilaterally. ABDOMEN: No hepatosplenomegaly. No tenderness to palpation. No rebound or guarding. His abdomen is flat and soft. EXTREMITIES: Somewhat cachectic, thin, tall man. He has no lower extremity edema. He has thick dystrophic nails. Pulses are intact distally. He has no cyanosis or mottling. His extremities are warm to touch. He does have a few scattered superficial abrasions to his right santa but he has no petechiae, no purpura, and no ecchymoses of any kind. GENITOURINARY: He has no scrotal edema. No erythema. No focal mass or fluctuance appreciated. He is uncircumcised without any lesions or drainage from the penis. condom urinary catheter in place draining yellow urine. RECTAL: No perirectal lesions appreciated. He has normal rectal tone. NEUROLOGIC: He is quite contracted. He does withdraw to pain. He does have subtle cogwheel rigidity in his right greater than left upper extremity. His deep tendon reflexes are 2+, equal and symmetric throughout. He does move all four extremities spontaneously and he has no focal tenderness to palpation. L shoulder partial intermittent seizures. Laboratory Tests Test 12/24/16 04:00 12/24/16 04:10 Urine Color Pale yellow Urine Appearance Clear Urine pH 6.5 (4.5-8.0) Urine Specific [place] 1.010 (1.005-1.035) Urine Protein Negative (NEGATIVE) Urine Glucose (UA) Negative (NEGATIVE) Urine Ketones Negative (NEGATIVE) Urine Occult Blood Negative (NEGATIVE) Urine Nitrite Negative (NEGATIVE) Urine Bilirubin Negative (NEGATIVE) Urine Urobilinogen Normal MG/DL (0.0-1.0) Urine Leukocyte Esterase 2+ (NEGATIVE) H Urine RBC 0-2 /HPF (0 - 0) H Urine WBC 5-10 /HPF (0 - 0) H Urine Squamous Epithelial Cells Few /LPF (NONE/OCC) Urine Bacteria Few /HPF (NONE) Urine Mucus Few /LPF (NONE/OCC) H White Blood Count 8.9 K/UL (4.8-10.8) Red Blood Count 3.31 M/UL (4.70-6.10) L Hemoglobin 9.3 G/DL (14.2-18.0) L Hematocrit 28.7 % (42.0-52.0) L Mean Corpuscular Volume 87 FL (80-99) Mean Corpuscular Hemoglobin 28.1 PG (27.0-31.0) Mean Corpuscular Hemoglobin Concent 32.4 G/DL (32.0-36.0) Red Cell Distribution Width 14.8 % (11.6-14.8) Platelet Count 408 K/UL (150-450) Mean Platelet Volume 5.5 FL (6.5-10.1) L Neutrophils (%) (Auto) % (45.0-75.0) Lymphocytes (%) (Auto) % (20.0-45.0) Monocytes (%) (Auto) % (1.0-10.0) Eosinophils (%) (Auto) % (0.0-3.0) Basophils (%) (Auto) % (0.0-2.0) Differential Total Cells Counted 100 Neutrophils % (Manual) 84 % (45-75) H Lymphocytes % (Manual) 6 % (20-45) L Monocytes % (Manual) 3 % (1-10) Eosinophils % (Manual) 7 % (0-3) H Basophils % (Manual) 0 % (0-2) Band Neutrophils 0 % (0-8) Platelet Estimate Adequate Platelet Morphology Normal Anisocytosis 1+ Erythrocyte Sedimentation Rate 73 MM/HR (0-20) H Reticulocyte Count 0.6 % (0.0-2.0) Prothrombin Time 10.0 SEC (9.30-11.50) Prothromb Time International Ratio 1.0 (0.9-1.1) Activated Partial Thromboplast Time 32 SEC (23-33) Sodium Level 137 mEQ/L (135-145) Potassium Level 3.5 mEQ/L (3.4-4.9) Chloride Level 101 mEQ/L (98-107) Carbon Dioxide Level 23 mEQ/L (20-30) Anion Gap 13 (5-15) Blood Urea Nitrogen 11 mg/dL (7-23) Creatinine 1.5 mg/dL (0.7-1.2) H Estimat Glomerular Filtration Rate 46.5 mL/min (>60) Glucose Level 95 mg/dL (74-106) Calcium Level 8.6 mg/dL (8.6-10.2) Iron Level 39 ug/dL (59-158) L Total Iron Binding Capacity 229 ug/dL (250-400) L Percent Iron Saturation 17 % (15-50) Unsaturated Iron Binding 190 ug/dL (112-346) Lactate Dehydrogenase 231 U/L (135-230) H Troponin I < 0.30 ng/mL (<=0.30) Carcinoembryonic Antigen 2.4 ng/mL Vitamin B12 Level 207 pg/mL (211-946) L Folate Pending Random Vancomycin Level 18.3 ug/mL Current Medications Medications (Trade) Dose Ordered Sig/Treasure Route PRN Reason Start Time Stop Time Status Last Admin Dose Admin Acetaminophen (Tylenol) 650 mg Q6H PRN GT Mild Pain/Temp > 100.5 12/21/16 20:00 01/20/17 06:44 Acyclovir 500 mg/ Sodium Chloride 110 ml @ 110 mls/hr Q12HR@0600,1800 IV 12/23/16 18:00 01/22/17 17:59 12/24/16 18:13 Amlodipine Besylate (Norvasc) 5 mg DAILY GT 12/22/16 09:00 01/20/17 08:59 12/24/16 08:58 Ampicillin 2 gm/ Sodium Chloride 110 ml @ 220 mls/hr EVERY 6 HOURS IVPB 12/23/16 17:00 12/28/16 16:59 12/24/16 17:24 Ceftriaxone Sodium 2 gm/ Dextrose 110 ml @ 220 mls/hr Q12HR@0800,2000 IVPB 12/21/16 20:00 12/28/16 19:59 12/24/16 07:59 Cyanocobalamin (Vitamin B12) 1,000 mcg DAILY SUBQ 12/24/16 19:00 12/27/16 18:59 UNV Dextrose/Sodium Chloride 1,000 ml @ 75 mls/hr [id number] IV 12/21/16 13:00 01/20/17 12:59 12/24/16 07:59 Heparin Sodium (Porcine) (Heparin 5000 units/ml) 5,000 units EVERY 12 HOURS SUBQ 12/21/16 09:00 01/20/17 08:59 12/24/16 09:00 Levetiracetam 100 ml @ 400 mls/hr Q12HR IVPB 12/23/16 09:00 01/22/17 08:59 12/24/16 08:58 Lorazepam (Ativan 2mg/ml 1ml) 2 mg Q6H PRN IV For Seizures 12/22/16 20:30 12/29/16 20:29 Metoprolol Tartrate (Lopressor) 50 mg Q12HR NG 12/22/16 21:00 01/21/17 20:59 12/24/16 08:58 Ranitidine HCl (Zantac) 150 mg DAILY GT 12/24/16 09:00 01/21/17 08:59 12/24/16 08:58 Valproate Sodium 1000 mg/Dextrose 65 ml @ 32.5 mls/hr EVERY 12 HOURS IV 12/23/16 09:00 01/22/17 08:59 12/24/16 08:58 Uriel Morillo M.D. Dec 24, 2016 19:13
[2016-12-24] MEDS ORDERED: Tubing IV Secondary IV ONE (20:29)
[2016-12-24] MEDS ORDERED: D5 1/2NS 1000ml IV ONE (20:29)
[2016-12-24] MEDS ORDERED: DAPTOmycin 500 MG in NS 55 ML IV SCH (22:00)
[2016-12-25 07:54] LABS: OTHERS PATHOLOGIST COMMENT
--- NOTE | 2016-12-25 17:14 | Discharge Summary ---
Discharge Summary Hospital Course Date of Admission Dec 21, 2016 at 02:20 Date of Discharge Dec 24, 2016 at 20:30 Admitting Diagnosis Altered mental status HPI Barry Sims is a 66 year old male who was admitted on Dec 21, 2016 at 02: 20 for Altered Mental Status Hospital Course [id number] Discharge Discharge Disposition Patient was discharged to Acute Care Facility(02) Discharge Diagnoses: Regina Latif NP Dec 25, 2016 17:14
--- NOTE | 2016-12-26 06:30 | Discharge Summary 2 SIG ---
DATE OF ADMISSION: 12/21/2016 DATE OF DISCHARGE: 12/24/2016 CONSULTANTS: 1. Frantz Mckeon M.D. 2. Uriel Morillo M.D. 3. Alan Merritt M.D. BRIEF HOSPITAL COURSE: The patient is a 66-year-old male, who is a resident of a retirement facility, who was having tremors and some seizure-like activities, was taken to [facility] by EMS. On evaluation at ED, labs showed leukocytosis. WBC was elevated to 18. Lactate was elevated. Chest x-ray and UA was negative for obvious source of infection. The patient was having tremors and was given IV Ativan. Head CT showed no acute process. Multiple attempts on obtaining lumbar puncture was done, however, was unsuccessful. He was started empirically for treatment for meningitis and was admitted due to sepsis, presumed meningoencephalitis. He was seen by Infectious Disease consult. Head CT was negative for intracranial hemorrhage, mass and edema. He had some periventricular small white matter changes consistent with old microvascular ischemic changes. He was worked up for encephalitis. Cefepime was discontinued and was given ceftriaxone and IV acyclovir. Empiric treatment for HSV encephalitis. He was checked for West Nile and syphilis. He was placed on isolation for possible meningitis. On neurologic examination, the patient was oriented to self only. He has significant problems with language and significant aphasia and dysarthria. He had global cognitive dysfunction with depressed left corneal reflex, left greater than right, seventh central facial paralysis, left upper extremity plegia, right upper extremity paresis left greater than right lower extremity paresis, and absent deep tendon reflexes. He had an EEG done. Findings were consistent with encephalopathy of moderate degree and brain dysfunction. There was interictal discharges emanating from the right hemisphere and an electrographic seizure which started over the right brain and then generalized associated with left shoulder twitching. He was given Keppra and Depakote with Ativan p.r.n. seizures. HIV was negative and RPR was nonreactive. Urine culture did not isolate any growth, but this was obtained after he received one dose of vancomycin and Unasyn. Examination is less suggestive of meningococcemia or bacterial meningoencephalitis. Urosepsis was ruled out. Brain MRI showed no acute intracranial findings with multiple small vessel infarct and age related atrophy. He was seen by a psychiatrist. No antipsychotics were given. Agitation was treated with benzodiazepines. He was eventually transferred to [facility] to continue management. FINAL DIAGNOSES: 1. Sepsis sources including but not limited to meningitis. 2. Meningoencephalitis with presumable diagnosis. 3. Lumbar puncture cannot be obtained secondary to the patient's posture. 4. Old cerebrovascular accident. 5. Seizure disorder. 6. Acute on chronic encephalopathy. 7. Anemia. 8. Anxiety/depression. 9. Acute kidney injury with acute tubular necrosis possibly to vancomycin. 10. Elevated serum lactate, resolved. DISPOSITION: The patient was discharged to [facility]. Gerard Kelley M.D. I have been assigned to dictate discharge summary on this account and I was not involved in the patient's management. Regina Latif N.P. DR: ALFRED JOB#: [id number] CC: [email or web address]
[2016-12-26 09:35] LABS: VITAMIN D 25-OH TOTAL 5.6 ng/mL (.)
== END 2016-12-24 20:30 | disposition short-term general hospital (02) | DRG 871 ==
LOC: EDBD 23:07 → EMR 23:10 → EDBEDREQ 12-21 00:19 → 2W 12-21 02:20 → EDBEDREQ 12-21 02:23 → 2W 12-21 04:01 → 2E 12-21 09:09
DX: A41.9 Sepsis, unspecified organism (principal); G04.90 Encephalitis and encephalomyelitis, unspecified; N17.0 Acute kidney failure with tubular necrosis; G92 Toxic encephalopathy; G40.89 Other seizures; R47.01 Aphasia; Z86.73 Personal history of transient ischemic attack (TIA), and cerebral infarction without residual deficits; D64.9 Anemia, unspecified; F41.8 Other specified anxiety disorders; T36.8X5A Adverse effect of other systemic antibiotics, initial encounter; I10 Essential (primary) hypertension; J44.9 Chronic obstructive pulmonary disease, unspecified; Z88.8 Allergy status to other drugs, medicaments and biological substances; Z87.891 Personal history of nicotine dependence; G25.0 Essential tremor; F03.90 Unspecified dementia, unspecified severity, without behavioral disturbance, psychotic disturbance, mood disturbance, and anxiety; R47.1 Dysarthria and anarthria
CPT/HCPCS: 36415; 62270; 70450; 70553; 71010; 74000; 80048; 80053; 80164; 80202; 81003; 82306; 82378; 82550; 82553; 82607; 82746; 83036; 83540; 83550; 83605; 83615; 83735; 84100; 84443; 84484; 85007; 85025; 85044; 85060; 85610; 85651; 85730; 86140; 86592; 86703; 87040; 87081; 87086; 93005; 93306; 94760; 95819; 99285; A9585; J2250